=== PATIENT | male | born 1960 | race Caucasian/White ===

== ENCOUNTER → 2017-12-27 17:13 | Outpatient (CLI) | payer OTHER, SELFPAY ==
--- NOTE | 2017-12-27 14:00 | LES_PTH ---
PATIENT: JAKE RAMOS LOC: [facility] U#:[id number] AGE/SX: 64/M ROOM: RE12/27/[address]: Dr. Steven Ibarra MD : [id number] BED: DIS: SPEC #: [id number] RECD: 12/30/17 07:41 STATUS: GORDON RE #: [id number] PRISCILLA: 12/27/17 14:[address]: Emil Ibarra DEPT: SURGICAL PATHOLOGY RECD BY: Jayjay Sharma ENTERED: 12/30/17 07:41 SP TYPE: Lesion OTHR DR: Dr. Steven Ibarra MD Out of [facility] Doctor Tissues: Soft palate Procedures: Surgery Specimen Level IV Comments: @ Ordering doctor for SUIV edited from to @ by RGOOD at 12/30/17 0849 @ Submitting doctor edited from to @ by RGOOD at 12/30/17 0849 HEADER OPERATION: Not noted PRE-OP DIAGNOSIS: Soft palate neoplasm TISSUE SUBMITTED: Soft palate neoplasm, permanent pathology MICROSCOPIC DIAGNOSIS Soft palate neoplasm, biopsy: Squamous papilloma. CATALINO:ashia 12/31/17 MICROSCOPIC DESCRIPTION Slides are reviewed. GROSS DESCRIPTION Received in fixative is one container labeled with the patient's name and designated soft palate neoplasm. The specimen consists of a piece of soft tissue measuring 0.2 x 0.2 x 0.1 cm. The specimen is totally submitted in one cassette. / CATALINO:ashia 12/30/17 TC:1 CPT: 09811
== END ==
PROVIDERS: Visit Provider Otolaryngology Otolaryngology/Facial Plastic Surgery
DX: D49.0 Neoplasm of unspecified behavior of digestive system (principal)
CPT/HCPCS: 88305

== ENCOUNTER 2020-06-18 15:19 | Inpatient (IN) | payer OTHER, SELFPAY ==
[2020-06-18] VITALS (7 sets, daily range): BP systolic 105–147; BP diastolic 71–93; PULSE 77–86; RESP 18–26; TEMP 37.1–37.3; O2SAT 92–97; BMI 31.1
--- NOTE | 2020-06-18 15:46 | PCM.HP.STD ---
Problem List (1) Hypertension Status: Chronic (2) Hyperlipidemia Status: Chronic (3) Chest pain Status: Acute History of Present Illness Date of Admission: 06/18/20 Chief Complaint: Chest pain. The patient is a 59 year old M who presents emergency room due to chest pain. Patient reports this has been ongoing for 2 days. He describes a pressure/heaviness with pain radiation to his left shoulder and down his left arm. He states he had difficulty sleeping last night due to significant pain. He denies any aggravating or alleviating factors. He thought his symptoms were due to indigestion and tried [id number] medication without any relief. His daughter is a nurse and told him to go to the ER for evaluation. Patient denies history of similar symptoms. He states pain occurred both while he was active and at rest. Patient describes associated shortness of breath with episodes of chest pressure. He denies nausea, diaphoresis. He has a past medical history of hypertension and hyperlipidemia. He states his father had triple bypass in his 50s and his paternal grandfather suddenly of massive heart attack in his 50s as well. He denies history of stress test or heart cath. Denies known CAD. Past Medical History Past Medical History (Chronic Problems): Chronic Problems Hypertension (Chronic) Hyperlipidemia (Chronic) Surgical History: - - Right ear surgery Psychiatric History: No pertinent psych hx Lives: Spouse/ Significant Other Smoking Status: Former smoker Alcohol: Occasional Drugs: None - *Family History Maternal History Items: - - Valvular heart disease Paternal History Items: Heart Disease Review of Systems Constitutional: Denies: Chills, Fever, Weight Change HEENT: Denies: Head Aches, Sinus Congestion, Sinus Drainage Cardiovascular: Reports: Chest Pain. Denies: Edema, Light Headedness, Palpitations Respiratory: Reports: Shortness of Breath - Associated with chest pain. Denies: Cough Gastrointestinal: Denies: Abdominal Pain, Nausea, Vomiting Genitourinary: Denies: Dysuria Musculoskeletal: Denies: Joint Pain, Joint Tenderness Skin: Denies: Rash, Wounds Neurological: Denies: Numbness, Tingling, Focal weakness Psychiatric: Denies: Anxiety, Depression, Homicidal Ideations, Suicidal Ideations Hematologic/ Lymphatic: Denies: Easy Bruising, Easy Bleeding VTE Information - Inpt Only VTE Present on Admission: No VTE Mechan Device Prophylaxis: None VTE Pharm Prophylaxis ordered?: Yes - Physical Exam Vitals/I&O's: Vital Signs Temp Pulse Resp BP Pulse Ox 99.1 F 80 26 H 147/93 H 94 06/18/20 15:38 06/18/20 15:38 06/18/20 15:38 06/18/20 15:38 06/18/20 15:38 Oxygen Delivery Method Room Air Weight: 204 lb 11.2 oz Body Mass Index (BMI) 31.1 General: Alert, Oriented x3, Cooperative HEENT: Atraumatic, PERRLA, EOMI, Normocephalic Neck: Supple, No JVD, Negative Carotid Bruits Lungs: Clear to auscultation, Normal air movement Cardiovascular: Regular rate, No murmurs Abdomen: Bowel Sounds Present, Soft, Non Tender, Non-Distended Extremities: No clubbing, No cyanosis, No edema, Capillary Refill Less than 3 Seconds Skin: No rashes, No breakdown Musculoskeletal: No Tenderness to Palpation of Joints or Extremities Neurological: Cranial nerves II-XII grossly intact, Neuro grossly intact Psych/Mental Status: Normal Affect, Appropriate Current Medications Sodium Chloride (0.9% Saline Lock 10 Ml Syringe) 10 - 40 ml IV UD PRN PRN Reason: SALINE FLUSH Assessment/Plan All Active Problems Chest pain (Acute) 1. Chest pain, NSTEMI- last high-sensitivity troponin at [facility] 162.6 with normal reference range 0-76.2. Covid negative at outside facility. Cardiology consulted. Trend enzymes. Aspirin, statin. As needed nitro. Obtain echo. 2. Hypertension-continue home amlodipine, lisinopril. 3. Hyperlipidemia-continue home statin regimen. 4. GERD-continue PPI. DVT prophylaxis- Lovenox sc This patient was seen by BOBBI Gregory under the supervision of Dr. Ramirez.
--- NOTE | 2020-06-18 16:44 | ECHOD_ITS ---
Reason For Study: CHEST PAIN Procedure This was a 2D Doppler, Color Flow transthoracic echocardiogram. The study was technically difficult. Exam performed portable in patient room. Left Ventricle Normal LV size. Left ventricular systolic function is normal. The estimated ejection fraction is 55 %. No evidence for diastolic dysfunction. No regional wall motion abnormalities noted. Right Ventricle Normal RV size. Normal systolic function. Atria The left atrium is mildly enlarged. Normal right atrium. No doppler evidence for ASD. Mitral Valve There is mild mitral annular calcification. Extension of the mitral annular calcification on the base the posterior mitral valve leaflet. Trivial mitral valve insufficiency. Tricuspid Valve Normal tricuspid valve. Trivial tricuspid valve insufficiency. Right ventricular systolic pressure estimated to be 24 mmHg. Aortic Valve Trisinus/trileaflet aortic valve. Normal aortic valve. Pulmonic Valve The pulmonic valve is not well visualized. Trivial pulmonic valve insufficiency. Great Vessels Normal sized aortic root. Pericardium/Pleural No pericardial effusion. MMode/2D Measurements & Calculations LVIDd: 5.2 cm IVSd: 1.0 cm Ao root diam: 3.3 cm LVIDs: 3.5 cm LVPWd: 0.86 cm RVDd: 3.2 cm FS: 31.8 % LAV(MOD-bp): 53.8 ml LVAd ap4: 36.5 cm2 SV(MOD-sp4): 73.7 ml LAV(MOD-bp) Indexed: 26.1 ml/m2 EDV(MOD-sp4): 130.4 ml LAV(MOD-sp2): 59.1 ml EDV(sp4-el): 128.1 ml LAV(MOD-sp4): 48.6 ml LVAs ap4: 21.9 cm2 ESV(MOD-sp4): 56.7 ml ESV(sp4-el): 54.8 ml EF(MOD-sp4): 56.5 % EF(sp4-el): 57.2 % SV(sp4-el): 73.3 ml LA A4 area: 18.3 cm2 LA dimension(2D): 4.3 cm RA A4 area: 13.9 cm2 Time Measurements MV dec time: 0.22 sec Doppler Measurements & Calculations MV E max alcides: 73.8 cm/sec Lat Peak E' Alcides: 11.1 cm/sec Med Peak E' Alcides: 7.9 cm/sec MV A max alcides: 64.2 cm/sec E/E' lat: 6.7 E/E' med: 9.4 MV E/A: 1.2 Ao V2 max: 144.6 cm/sec LV V1 max: 96.8 cm/sec PA V2 max: 94.5 cm/sec Ao max P.4 mmHg LV V1 max P.7 mmHg PI end-d alcides: 47.3 cm/sec TR max alcides: 229.3 cm/sec TR max P.0 mmHg Interpretation Summary The study was technically difficult. Left ventricular systolic function is normal. The estimated ejection fraction is 55 %. The left atrium is mildly enlarged. There is mild mitral annular calcification. Extension of the mitral annular calcification on the base the posterior mitral valve leaflet. Trivial mitral valve insufficiency. Trivial tricuspid valve insufficiency. Trivial pulmonic valve insufficiency. Right ventricular systolic pressure estimated to be 24 mmHg. No evidence for diastolic dysfunction. Ordering Physician: Edi Mendoza Performed By: Fabienne Graham, KUMAR
--- NOTE | 2020-06-18 16:46 | PCM.CONS.C ---
Problem List (1) Chest pain Status: Acute (2) Abnormal cardiac enzyme level Status: Acute (3) Hyperlipidemia Status: Chronic (4) Hypertension Status: Chronic Reason for Consult Date of Consultation: 06/18/20 History of Present Illness: The patient is a 59 year [id number] white male with a past medical history of hyperlipidemia, hypertension, and hemorrhoids who presents for further evaluation of chest discomfort Durning for unstable angina pectoris and abnormal cardiac enzymes concerning for a non-ST segment elevation AK. The patient states to the best of his knowledge he does not have any cardiovascular history other than his hyperlipidemia and hypertension. He notes recently he has been having symptoms which he describes as indigestion, belching, and chest burning as well as discomfort in the left shoulder area. He is also felt somewhat more short of breath and dyspneic at times. He describes no orthopnea or PND or peripheral pitting edema. There has been no near syncope or syncope. He presented to his local emergency department for further evaluation. He was placed in the hospital for overnight evaluation and care. He had an initial troponin I level which was negative. He had a subsequent high-sensitivity troponin I level which was positive at 162.6. His ECGs demonstrated the appearance of sinus rhythm with poor R wave progression with no significant changes. A chest x-ray was reported with no acute cardiopulmonary disease process. He was placed on medical management and subsequently transferred to [facility] for further evaluation and care. At the present time he appears to be resting comfortably. He is not having his forementioned symptoms. He is pending further laboratory follow-up and ECG follow-up. Of note, he states his concerns also revolve around his risk factors. He notes his father in his 50s had CAD and CABG and a grandfather in his late 50s and of cardiovascular disease. At the outside hospital he was also evaluated for COVID-19 with both the antigen test and PCR test. Both were reported as negative at the time. [] Past Medical History Past Medical History (Chronic Problems): Chronic Problems Hypertension (Chronic) Hyperlipidemia (Chronic) Surgical History: - - Right ear surgery Psychiatric History: No pertinent psych hx - *Family History Maternal History Items: - - Valvular heart disease Paternal History Items: Heart Disease Lives: Spouse/ Significant Other Smoking Status: Former smoker Alcohol: Occasional Drugs: None Review of Systems - Review of Systems General: Denies: Fever, Night Sweats, Fatigue Cardiovascular: Reports: Chest Discomfort, Chest Discomfort at Rest, Chest Discomfort with Exertion, Shortness of Breath. Denies: Orthopnea, PND, Peripheral Edema, Palpitations, Lightheadedness, Dizziness, Near Syncope, Syncope Respiratory: Reports: Shortness of Breath. Denies: Cough, Sputum Production, Hemoptysis Gastrointestinal: Reports: Indigestion. Denies: Hematemesis, Hematochezia, Melena Genitourinary: Denies: Dysuria, Hematuria Skin: Denies: Rash Subjectve: This is a 59-year-old white male who appears resting comfortably at the moment in no acute distress. Objective: Vital Signs Temp Pulse Resp BP Pulse Ox 99.1 F 80 26 H 147/93 H 94 06/18/20 15:38 06/18/20 15:38 06/18/20 15:38 06/18/20 15:38 06/18/20 15:38 Oxygen Delivery Method Room Air Weight: 204 lb 11.2 oz Body Mass Index (BMI) 31.1 General: Awake, Alert, Oriented x 3, Cooperative, No Acute Distress HEENT: Atraumatic, Normocephalic, PERRL, EOMI, Sclera Non Icteric Neck: Supple, Good ROM, No JVD Lungs: Clear to auscultation Cardiovascular: Regular Rhythm, Normal S1, Normal S2 Vascular: No Carotid Bruits Abdomen: Bowel Sounds Present, Soft, Non Tender Extremities: No edema Neurological: No Focal Motor or Sensory Deficit Psych/Mental Status: Appropriate Rhythm: Sinus rhythm EKG: As noted above CXR: As noted above Assessment/Plan 1. Chest pain: Unstable angina pectoris The patient presents with chest discomfort concerning for accelerating/unstable angina pectoris. At the present time he appears to be resting comfortably. His outside hospital cardiac enzyme levels were thought to be abnormal raising concerns of an acute coronary syndrome/non-ST segment elevation AK. He is being followed. He will have follow-up laboratory studies and ECGs. He is being treated medically. This will include a combination of aspirin, antiplatelets, anticoagulants, nitrates, beta-blockers, afterload reducing agents, and lipid-lowering agents. He will be asked to have further noninvasive valuation with a transthoracic echocardiogram to evaluate left ventricular wall motion and systolic function. He will be considered for further evaluation with diagnostic cardiac catheterization to evaluate his coronary anatomy. 2. Abnormal cardiac enzymes Again he has abnormal cardiac enzymes based upon his outside hospital high-sensitivity troponin I level. This does raise concerns of a non-ST segment elevation AK. His cardiac enzyme levels will be followed as noted as well as his other noninvasive studies. He will be treated for an acute coronary syndrome as noted. He has been recommended for further evaluation with diagnostic cardiac catheterization. The procedure and risks have been discussed with him and he is agreeable to this approach. 3. Hyperlipidemia He will continue medical management. 4. Hypertension He will continue medical therapy with adjustment as needed. Comment: The patient's case has been discussed and reviewed with the patient and Ny Peguero CNP, the [facility] staff and Dr. Ramirez of the [facility] staff. This note was generated using a voice recognition system and there may be incorrect words, spelling or punctuation that were not noted when reviewing the office note prior to saving. Procedure Criteria Procedure Type: Elective COVID Risk Discussion: The surgeon/proceduralist and patient have discussed in detail the risk of exposure to and/or potential harm posed by the COVID-19 virus with having a surgery/procedure at this time versus the risk of delaying the surgery/procedure. It is not possible to know either the risk of delaying the surgery or procedure or chance of getting an infection with perfect accuracy, but a joint decision was made between the patient and the surgeon/proceduralist to proceed at this time with the scheduled surgery/procedure as indicated on the consent form.
[2020-06-18] MEDS: Clopidogrel Bisulfate 300 MG Tablet PO (17:59)
[2020-06-18] MEDS: Enoxaparin 100 MG/ML Syringe 90 MG SC (17:59)
[2020-06-18] MEDS: Nitroglycerin Oint 1 INCH PACKET TD ×2 (18:01→23:59)
[2020-06-18] MEDS: Metoprolol Tartrate 25 MG Tablet PO (20:57)
[2020-06-18] MEDS: Atorvastatin Calcium 80 MG Tablet PO (20:58)
[2020-06-19] VITALS (10 sets, daily range): BP systolic 95–135; BP diastolic 59–72; PULSE 63–81; RESP 15–18; TEMP 36.9–37.3; O2SAT 91–93
--- NOTE | 2020-06-19 05:55 | EKG12_ITS ---
Test Reason : AM EKG Blood Pressure : / mmHG Vent. Rate : 065 BPM Atrial Rate : 065 BPM P-R Int : 146 ms QRS Dur : 094 ms QT Int : 402 ms P-R-T Axes : 006 -19 001 degrees QTc Int : 418 ms Sinus rhythm with Premature atrial complexes Otherwise normal ECG Confirmed by GEE WANG, CRISTIAN ([id number]), scientific editor REINIER URBANO ([id number]) on 06/22/2020 1:20:25 PM Referred By: KIRSTEN Confirmed By:CRISTIAN FLYNN MD
[2020-06-19] MEDS: Nitroglycerin Oint 1 INCH PACKET TD ×3 (06:04→17:06)
[2020-06-19] MEDS: Enoxaparin 100 MG/ML Syringe 90 MG SC ×2 (06:05→17:06)
[2020-06-19 06:07] LABS: Absolute Lymphocyte Count 1.55 X10^3/uL (0.83-4.51); Absolute Neutrophil Count 7.7 X10^3/uL (2.0-7.7); Basophil# 0.03 X10^3/uL; Basophil% 0.3 % (0-1); Eosinophil# 0.08 X10^3/uL; Eosinophils% 0.8 % (0-5); Hematocrit 41.1 % (40-54); Hemoglobin 13.7 g/dL (13.0-16.5); Lymphocyte # 1.55 X10^3/ul (4.0); Lymphocyte % 14.7 % (19-41); Mean Corp Hgb Conc 33.3 g/dL (32-36); Mean Corpuscular Hgb 31.1 pg (27.0-32.0); Mean Corpuscular Volume 93.2 fL (80-94); Mean Platelet Vol. 10.1 fl (6.2-12.0); Monocyte# 1.11 X10^3/uL; Monocyte% 10.5 % (0-10); NRBC Flagged by Analyzer 0 % (0-5); Neutrophil # 7.73 X10^3/uL (2.7-7.7); Neutrophil % 73.1 % (47-70); Platelet Count 166 K/mm3 (150-450); RBC Distribution Width CV 12.8 % (11.6-14.6); RBC Distribution Width SD 44.4 fl (35.1-43.9); Red Blood Count 4.41 M/mm3 (4.6-6.2); White Blood Count 10.6 K/mm3 (4.4-11.0)
[2020-06-19 06:42] LABS: Anion Gap 6 (5-15); BUN 19 mg/dL (7-18); BUN/Creat Ratio 22.1 RATIO (10-20); Chloride 104 mmol/L (98-107); Creatinine, Serum 0.86 mg/dL (0.70-1.30); EST Glomerular Filtration Rate 96 mL/min (>60); Est Glom Filt Rate - Afr Amer 117 mL/min (>60); Estimated Creatinine Clearance 88.37 ml/min; Glucose 111 mg/dL (74-106); Potassium 4.2 mmol/L (3.5-5.1); Sodium Level 136 mmol/L (136-145)
[2020-06-19] MEDS: amLODIPine 10 MG Tablet PO (09:27)
[2020-06-19] MEDS: Aspirin 81 MG TAB.CHEW PO (09:27)
[2020-06-19] MEDS: Metoprolol Tartrate 25 MG Tablet PO ×2 (09:27→20:57)
--- NOTE | 2020-06-19 10:06 | PCM.PN.CARD ---
Subjectve: The patient states he slept better last night. He has had no recurrent chest discomfort this morning. Objective: Vital Signs Temp Pulse Resp BP Pulse Ox 98.4 F 68 15 105/71 92 06/19/20 09:09 06/19/20 09:27 06/19/20 09:09 06/19/20 09:09 06/19/20 09:09 Oxygen Delivery Method Room Air Weight: 205 lb 14.588 oz Body Mass Index (BMI) 31.1 Intake and Output for Last 24 Hours 06/17/20 06/18/20 06/19/20 23:59 23:59 23:59 Intake Total 240 / 720 480 / 480 Balance 240 / 720 480 / 480 General: Awake, Alert, Oriented x 3, Cooperative, No Acute Distress HEENT: Atraumatic, Normocephalic, PERRL, EOMI, Sclera Non Icteric Neck: Supple, Good ROM, No JVD Lungs: Clear to auscultation Cardiovascular: Regular Rhythm, Normal S1, Normal S2 Abdomen: Bowel Sounds Present, Soft Extremities: No edema Neurological: No Focal Motor or Sensory Deficit Psych/Mental Status: Appropriate 06/18/20 19:30: Troponin I 0.116 H 06/18/20 23:00: Troponin I 0.077 H 06/19/20 01:32: Troponin I 0.083 H 06/19/20 05:50: WBC 10.6, RBC 4.41 L, Hgb 13.7, Hct 41.1, MCV 93.2, MCH 31.1, MCHC 33.3, Plt Count 166, MPV 10.1, Immature Gran % (Auto) 0.600, Neut % (Auto) 73.1 H, Lymph % (Auto) 14.7 L, [place] % (Auto) 10.5 H, Eos % (Auto) 0.8, Baso % (Auto) 0.3, Absolute Neuts (auto) 7.7, Nucleated RBC % 0 06/19/20 05:50: Sodium 136, Potassium 4.2, Chloride 104, Carbon Dioxide 26.0, Anion Gap 6, BUN 19 H, Creatinine 0.86, Est GFR (MDRD) Af Amer 117, Est GFR (MDRD) Non-Af 96, BUN/Creatinine Ratio 22.1 H, Glucose 111 H, Calcium 9.0 Rhythm: Sinus rhythm EKG: Sinus rhythm; no acute ECG changes Medical Necessity - Tobacco Use Smoking Status: Former smoker Tobacco Use: Cigarettes Assessment/Plan 1. Chest pain: Unstable angina pectoris The patient presents with chest discomfort concerning for accelerating/unstable angina pectoris. At the present time he appears to be resting comfortably. His outside hospital cardiac enzyme levels were thought to be abnormal raising concerns of an acute coronary syndrome/non-ST segment elevation SC. He is being followed. Troponin I levels have remained indeterminate. ECG is demonstrated no acute ECG changes. He is being treated medically. This will include a combination of aspirin, antiplatelets, anticoagulants, nitrates, beta-blockers, afterload reducing agents, and lipid-lowering agents. He will be asked to have further noninvasive valuation with a transthoracic echocardiogram to evaluate left ventricular wall motion and systolic function. He will be considered for further evaluation with diagnostic cardiac catheterization to evaluate his coronary anatomy. 2. Abnormal cardiac enzymes: Non-ST segment elevation SC Again he has abnormal cardiac enzymes based upon his outside hospital high-sensitivity troponin I level. This does raise concerns of a non-ST segment elevation SC. His cardiac enzyme levels will be followed as noted as well as his other noninvasive studies. He will be treated for an acute coronary syndrome as noted. He has been recommended for further evaluation with diagnostic cardiac catheterization. The procedure and risks have been discussed with him and he is agreeable to this approach. 3. Hyperlipidemia He will continue medical management. 4. Hypertension He will continue medical therapy with adjustment as needed. This note was generated using a voice recognition system and there may be incorrect words, spelling or punctuation that were not noted when reviewing the office note prior to saving. Procedure Criteria Procedure Type: Elective COVID Risk Discussion: The surgeon/proceduralist and patient have discussed in detail the risk of exposure to and/or potential harm posed by the COVID-19 virus with having a surgery/procedure at this time versus the risk of delaying the surgery/procedure. It is not possible to know either the risk of delaying the surgery or procedure or chance of getting an infection with perfect accuracy, but a joint decision was made between the patient and the surgeon/proceduralist to proceed at this time with the scheduled surgery/procedure as indicated on the consent form.
--- NOTE | 2020-06-19 10:42 | PN_ITS ---
Patient Problems: Active and Suspected Problems Chest pain (Acute) Abnormal cardiac enzyme level (Acute) Subjective: Patient seen and examined. Denies further chest pain overnight. Complains of mild headache. Reports episode of black stool this morning. Denies other symptoms or complaints. Plan for heart cath in a.m. - Physical Exam Vitals/I&O's: Vital Signs Temp Pulse Resp BP Pulse Ox 98.4 F 68 15 105/71 92 06/19/20 09:09 06/19/20 09:27 06/19/20 09:09 06/19/20 09:09 06/19/20 09:09 Oxygen Delivery Method Room Air Weight: 205 lb 14.588 oz Body Mass Index (BMI) 31.1 Intake and Output for Last 24 Hours 06/17/20 06/18/20 06/19/20 23:59 23:59 23:59 Intake Total 240 / 720 480 / 480 Balance 240 / 720 480 / 480 General: Alert, Oriented x3, Cooperative HEENT: Atraumatic, PERRLA, EOMI, Normocephalic Neck: Supple, No JVD, Negative Carotid Bruits Lungs: Clear to auscultation, Normal air movement Cardiovascular: Regular rate, No murmurs Abdomen: Bowel Sounds Present, Soft, Non Tender, Non-Distended Extremities: No clubbing, No cyanosis, No edema, Capillary Refill Less than 3 Seconds Skin: No rashes, No breakdown Musculoskeletal: No Tenderness to Palpation of Joints or Extremities Neurological: Cranial nerves II-XII grossly intact Psych/Mental Status: Normal Affect, Appropriate Laboratory Results 06/18/20 19:30: Troponin I 0.116 H 06/18/20 23:00: Troponin I 0.077 H 06/19/20 01:32: Troponin I 0.083 H 06/19/20 05:50: WBC 10.6, RBC 4.41 L, Hgb 13.7, Hct 41.1, MCV 93.2, MCH 31.1, MCHC 33.3, RDW Std Deviation 44.4 H, RDW Coeff of Andres 12.8, Plt Count 166, MPV 10.1, Immature Gran % (Auto) 0.600, Neut % (Auto) 73.1 H, Lymph % (Auto) 14.7 L, [place] % (Auto) 10.5 H, Eos % (Auto) 0.8, Baso % (Auto) 0.3, Absolute Neuts (auto) 7.7, Absolute Lymphs (auto) 1.55, Nucleated RBC % 0 06/19/20 05:50: Sodium 136, Potassium 4.2, Chloride 104, Carbon Dioxide 26.0, Anion Gap 6, BUN 19 H, Creatinine 0.86, Estim Creat Clear Calc 88.37, Est GFR (MDRD) Af Amer 117, Est GFR (MDRD) Non-Af 96, BUN/Creatinine Ratio 22.1 H, Glucose 111 H, Calcium 9.0 Current Medications Acetaminophen (Acetaminophen 325 Mg Tablet) 650 mg PO Q6H PRN PRN PRN Reason: Pain Score 1-10/Temp > 100.7 F Amlodipine Besylate (Amlodipine 10 Mg Tablet) 10 mg PO DAILY [facility] Last Admin: 06/19/20 09:27 Dose: 10 mg Documented by: Aspirin (Aspirin 81 Mg Tab.Chew) 81 mg PO DAILY@0800 [facility] Last Admin: 06/19/20 09:27 Dose: 81 mg Documented by: Atorvastatin Calcium (Atorvastatin Calcium 80 Mg Tablet) 80 mg PO QHS [facility] Last Admin: 06/18/20 20:58 Dose: 80 mg Documented by: Clopidogrel Bisulfate (Clopidogrel Bisulfate 75 Mg Tablet) 75 mg PO DAILY [facility] Enoxaparin Sodium (Enoxaparin 100 Mg/Ml Syringe) 90 mg SC Q12@0600,1800 [facility] Last Admin: 06/19/20 06:05 Dose: 90 mg Documented by: Sodium Chloride () 1,000 mls @ 0 mls/hr IV .Q0M [facility] Lisinopril (Lisinopril 40 Mg Tablet) 40 mg PO DAILY [facility] Metoprolol Tartrate (Metoprolol Tartrate 25 Mg Tablet) 25 mg PO BID [facility] Last Admin: 06/19/20 09:27 Dose: 25 mg Documented by: Nitroglycerin (Nitroglycerin Oint 1 Inch Packet) 1 inch TD Q6 [facility] Last Admin: 06/19/20 06:04 Dose: 1 inch Documented by: Ondansetron HCl (Ondansetron 4 Mg/2 Ml Vial) 4 mg IV Q8H PRN PRN PRN Reason: NAUSEA/VOMITING Sodium Chloride (0.9% Saline Lock 10 Ml Syringe) 10 - 40 ml IV UD PRN PRN Reason: SALINE FLUSH Temazepam (Temazepam 15 Mg Capsule) 15 mg PO QHS PRN PRN PRN Reason: INSOMNIA Medical Necessity - Tobacco Use Smoking Status: Former smoker Tobacco Use: Cigarettes Assessment/Plan All Active Problems Chest pain (Acute) Abnormal cardiac enzyme level (Acute) 1. Chest pain, abnormal troponin- Cardiology consulted. Aspirin, statin, Plavix, metoprolol, nitro patch. Echocardiogram ordered. Plan for heart cath in a.m. 2. Hypertension-continue home amlodipine, lisinopril. Beta-breanna added. 3. Hyperlipidemia-continue home statin regimen. 4. GERD-continue PPI. DVT prophylaxis- Lovenox sc This patient was seen by BOBBI Gregory under the supervision of Dr. Ramirez.
[2020-06-19] MEDS: Lisinopril 40 MG Tablet PO (12:30)
[2020-06-19] MEDS: Clopidogrel Bisulfate 75 MG Tablet PO (12:30)
[2020-06-19] MEDS: Atorvastatin Calcium 80 MG Tablet PO (20:57)
[2020-06-20] VITALS (16 sets, daily range): BP systolic 107–128; BP diastolic 60–85; PULSE 57–70; RESP 14–18; TEMP 36.6–36.9; O2SAT 92–96
[2020-06-20] MEDS: Nitroglycerin Oint 1 INCH PACKET TD ×2 (00:05→06:19)
--- NOTE | 2020-06-20 05:55 | EKG12_ITS ---
Test Reason : AM EKG Blood Pressure : / mmHG Vent. Rate : 064 BPM Atrial Rate : 064 BPM P-R Int : 142 ms QRS Dur : 094 ms QT Int : 408 ms P-R-T Axes : -01 -22 -02 degrees QTc Int : 420 ms Sinus rhythm with marked sinus arrhythmia Confirmed by GEE WANG, CRISTIAN ([id number]), editor magazine REINIER URBANO ([id number]) on 06/22/2020 1:39:02 PM Referred By: KIRSTEN Confirmed By:CRISTIAN FLYNN MD
[2020-06-20] MEDS: Metoprolol Tartrate 25 MG Tablet PO (06:19)
[2020-06-20] MEDS: amLODIPine 10 MG Tablet PO (06:19)
[2020-06-20] MEDS: Clopidogrel Bisulfate 75 MG Tablet PO (06:19)
[2020-06-20] MEDS: Aspirin 81 MG TAB.CHEW PO (06:19)
[2020-06-20] MEDS: Lisinopril 40 MG Tablet PO (06:19)
[2020-06-20 06:22] LABS: Hematocrit 39.7 % (40-54); Hemoglobin 13.5 g/dL (13.0-16.5); Mean Corpuscular Hgb 31.6 pg (27.0-32.0); Platelet Count 181 K/mm3 (150-450); RBC Distribution Width CV 12.8 % (11.6-14.6); RBC Distribution Width SD 43.8 fl (35.1-43.9); Red Blood Count 4.27 M/mm3 (4.6-6.2)
[2020-06-20 06:49] LABS: Anion Gap 5 (5-15); BUN 17 mg/dL (7-18); BUN/Creat Ratio 19.6 RATIO (10-20); Calcium,Total 8.6 mg/dL (8.5-10.1); Chloride 106 mmol/L (98-107); Creatinine, Serum 0.87 mg/dL (0.70-1.30); EST Glomerular Filtration Rate 95 mL/min (>60); Est Glom Filt Rate - Afr Amer 116 mL/min (>60); Estimated Creatinine Clearance 87.36 ml/min; Glucose 111 mg/dL (74-106); Potassium 4.1 mmol/L (3.5-5.1); Sodium Level 137 mmol/L (136-145)
[2020-06-20 06:52] LABS: International Normalized Ratio 1.1; Prothrombin Time (Protime)PT. 13.9 SECONDS (11.7-14.9)
[2020-06-20] MEDS: 0.9% Normal Saline 1,000 ML 75 ML IV (08:25)
--- NOTE | 2020-06-20 08:50 | CL.D_ITS ---
Patient Name: JAKE RAMOS Study Date: 06/20/2020 Performing: Edi Mendoza MD Ht: 68 inches 173 cm : 1960 Wt: 205.3 lbs 93 kg Age: 59 Gender: male BSA: 2.07 PROCEDURE(S) PERFORMED ST21-ULD/COR/LV CLINICAL PROFILE AND INDICATIONS Indications: ACS > 24 hrs, New Onset Angina <= 2 months, Suspected CAD Heart Failure: None Stress/Imaging Stress/Image Study Performed: No Angina Classification Anginal Classification w/in 2 Weeks: CCS IV CAD Presentations: Non-STEMI. CONCLUSIONS Elevated Left Ventricular End Diastolic Pressure Normal LV size, wall motion,and systolic function LVEF: by LV gram 55 % [place] Multivessel CAD RECOMMENDATIONS Risk factor modification Medical therapy DESCRIPTION OF PROCEDURE The patient arrived to the procedure lab. The risks and benefits of the procedure as well as a full d escription of our services here and current unavailability of surgical backup were fully explained to the patient and/or their significant other prior to the catheterization. The Timeout was completed, verifying the correct patient and procedure. The patient's procedural site was prepped and draped in the usual fashion. Local anesthetic was given subcutaneously to right radial region with Lidocaine 2% . Using a modified Seldinger technique, arterial access was obtained via the right radial artery, a 6 Fr sheath was inserted. Right Coronary Artery selective angiography was then performed in multiple v iews using a 5 Fr. 4.0 [place] catheter. Left Coronary Artery selective angiography was performed in mu ltiple views using a 5 Fr. JL3.5 catheter. Left Ventriculography was performed in [place] projection usin g a 5 Fr. Pigtail catheter. LV to AO pullback pressures were then recorded.The arterial sheath was pulled and a TR Band was applied for hemostasis 12cc air inserted CORONARY ANGIOGRAPHY DOMINANCE: Right Dominant LEFT HEART ASSESSMENT Left Ventricular Ejection Fraction: by LV Gram 55 % Normal LV wall motion Elevated Left Ventricular End Diastolic Pressure LVEDP: 26 mmHg LEFT MAIN: Proximal: Eccentric: 25 % Stenosis, Distal: 10 - 25 % Stenosis LEFT ANTERIOR DESCENDING ARTERY: Mild luminal irregularities DIAGONAL 1: Ostial - 25 % Stenosis DIAGONAL 2: Ostial - 25 % Stenosis CIRCUMFLEX ARTERY: Mild luminal irregularities RIGHT CORONARY ARTERY: Mild luminal irregularities Mid to Distal: Diffuse Ectatic Changes AORTIC ROOT: Angiographically normal COMPLICATIONS No Complications PROCEDURE MEDICATIONS Fentanyl 50 mcg IV Versed 1 mg IV Oxygen: 2 L/min via nasal cannula SUMMARY OF HEMODYNAMIC DATA Time AIR REST ECG 07:29:41 Art 122/76 (93) 07:46:42 AO 110/82 (97) SA 07:53:29 LV 121/2, 25 08:10:20 LV 124/0, 26 08:10:27 LV 118/10, 25 08:11:13 LVp 115/7, 24 08:11:18 AOp 122/78 (97) 08:11:23 Signed By Edi Mendoza MD On 06/20/2020 08:49:57 Edi Mendoza MD
[2020-06-20] MEDS: Acetaminophen 325 MG Tablet 650 MG PO (11:00)
[2020-06-20] MEDS: Isosorbide Mononitrate 30 MG Tablet PO (11:01)
--- NOTE | 2020-06-20 11:37 | PCM.DC ---
- Discharge Diagnoses Current Active Problems: Current Active and Chronic Problems (Last Updated 06/20/20 @ 09:05 by Valencia Nieves) Hypertension (Chronic) Hyperlipidemia (Chronic) Chest pain (Acute) Abnormal cardiac enzyme level (Acute) You will use the following diet at home:: Cardiac Discharge Activity: - - Follow post cath instructions Call your doctor if you observe: Shortness of breath, Chest pain Allergies/Adverse Reactions: Allergies No Known Allergies Allergy (Verified 06/18/20 16:49) Medications to take at Discharge Lisinopril [Zestril] 40 mg PO DAILY 06/18/20 Amlodipine [Norvasc] 10 mg PO DAILY tab 06/20/20 Aspirin [Aspirin, Baby] 81 mg PO DAILY@0800 #60 tab.chew 06/20/20 Atorvastatin Calcium [Lipitor] 80 mg PO QHS #60 tab 06/20/20 Clopidogrel Bisulfate [Plavix] 75 mg PO DAILY #60 tab 06/20/20 Isosorbide Mononitrate [Imdur] 30 mg PO DAILY #60 tab 06/20/20 Lisinopril [Zestril] 40 mg PO DAILY tab 06/20/20 Metoprolol Tartrate [Lopressor (beta breanna)] 25 mg PO BID #120 tab 06/20/20 Pantoprazole Sodium [Protonix] 40 mg PO DAILY #60 tab 06/20/20 The following prescriptions were given: Aspirin [Aspirin, Baby] 81 mg PO DAILY@0800 #60 tab.chew Transmission Status: Received by [facility]/pharmacy #[id number] Isosorbide Mononitrate [Imdur] 30 mg PO DAILY #60 tab Transmission Status: Received by [facility]/pharmacy #[id number] Atorvastatin Calcium [Lipitor] 80 mg PO QHS #60 tab Transmission Status: Received by [facility]/pharmacy #[id number] Metoprolol Tartrate [Lopressor (beta breanna)] 25 mg PO BID #120 tab Transmission Status: Received by [facility]/pharmacy #[id number] Clopidogrel Bisulfate [Plavix] 75 mg PO DAILY #60 tab Transmission Status: Received by [facility]/pharmacy #[id number] Pantoprazole Sodium [Protonix] 40 mg PO DAILY #60 tab Transmission Status: Received by [facility]/pharmacy #[id number] Primary Care Physician: Care Physician,No Primary [Primary Care Provider] - Please follow up with your Primary Care Physician in: 1 Week Test Results: Test results from this visit will be discussed in further detail at your follow-up appointment, if applicable. Please Follow Up With: Edi Mendoza MD When: 2 Weeks Proposed Discharge Date: 06/20/20
--- NOTE | 2020-06-20 12:28 | PHA.DC.MC ---
Pharmacy Service has performed discharge medication reconciliation and counseling for this patient. 1. ASPIRIN 81MG PO DAILYCM 2. ATORVASTATIN 80MG PO QHS 3. CLOPIDOGREL 75MG PO DAILY 4. ISOSORBIDE MONONITRATE 30MG PO DAILY 5. METOPROLOL TARTRATE 25MG PO BID 6. PANTOPRAZOLE 40MG PO DAILY The patient's discharge medication list was reviewed for discrepancies and discrepancies were resolved. Spoke with DIVE SUPERVISOR Erin regarding duplicate lisinopril 40mg order. TORB to correct. Home Medications Lisinopril [Zestril] 40 mg PO DAILY 06/18/20 Amlodipine [Norvasc] 10 mg PO DAILY tab 06/20/20 Aspirin [Aspirin, Baby] 81 mg PO DAILY@0800 #60 tab.chew 06/20/20 Atorvastatin Calcium [Lipitor] 80 mg PO QHS #60 tab 06/20/20 Clopidogrel Bisulfate [Plavix] 75 mg PO DAILY #60 tab 06/20/20 Isosorbide Mononitrate [Imdur] 30 mg PO DAILY #60 tab 06/20/20 Metoprolol Tartrate [Lopressor (beta breanna)] 25 mg PO BID #120 tab 06/20/20 Pantoprazole Sodium [Protonix] 40 mg PO DAILY #60 tab 06/20/20 The patient was counseled on the following discharge medications and changes in medications for homegoing were reviewed. The Reason for Use, instructions for use, and potential side effects were reviewed for all new medications. The patient's questions regarding all of their medications were answered. The patient was able to verbally demonstrate an understanding of their discharge medications.
--- NOTE | 2020-06-20 12:36 | PN.CARD_ITS ---
Subjectve: The patient underwent evaluation earlier this day with diagnostic cardiac catheterization. He appears to have had no acute complaints. Objective: Vital Signs Temp Pulse Resp BP Pulse Ox 98.3 F 61 14 118/80 92 06/20/20 10:00 06/20/20 12:02 06/20/20 11:44 06/20/20 11:44 06/20/20 11:44 Oxygen Delivery Method Room Air Weight: 205 lb 14.588 oz Body Mass Index (BMI) 31.1 Intake and Output for Last 24 Hours 06/18/20 06/19/20 06/20/20 23:59 23:59 23:59 Intake Total 240 / 720 1700 / 1700 420 / 420 Balance 240 / 720 1700 / 1700 420 / 420 General: Awake, Alert, Oriented x 3, Cooperative, No Acute Distress HEENT: Atraumatic, Normocephalic, PERRL, EOMI, Sclera Non Icteric Neck: Supple, Good ROM, No JVD Lungs: Clear to auscultation Cardiovascular: Regular Rhythm, Normal S1, Normal S2 Vascular: Normal Radial Pulses Abdomen: Bowel Sounds Present, Soft, Non Tender Extremities: No edema Neurological: No Focal Motor or Sensory Deficit Psych/Mental Status: Appropriate 06/20/20 06:07: WBC 10.0, RBC 4.27 L, Hgb 13.5, Hct 39.7 L, MCV 93.0, MCH 31.6, MCHC 34.0, Plt Count 181, MPV 10.0 06/20/20 06:07: PT 13.9, INR 1.1 06/20/20 06:07: Sodium 137, Potassium 4.1, Chloride 106, Carbon Dioxide 26.0, Anion Gap 5, BUN 17, Creatinine 0.87, Est GFR (MDRD) Af Amer 116, Est GFR (MDRD) Non-Af 95, BUN/Creatinine Ratio 19.6, Glucose 111 H, Calcium 8.6 Rhythm: Sinus rhythm Echocardiogram: Interpretation Summary The study was technically difficult. Left ventricular systolic function is normal. The estimated ejection fraction is 55 %. The left atrium is mildly enlarged. There is mild mitral annular calcification. Extension of the mitral annular calcification on the base the posterior mitral valve leaflet. Trivial mitral valve insufficiency. Trivial tricuspid valve insufficiency. Trivial pulmonic valve insufficiency. Right ventricular systolic pressure estimated to be 24 mmHg. No evidence for diastolic dysfunction. Cardiac catheterization: CONCLUSIONS Elevated Left Ventricular End Diastolic Pressure Normal LV size, wall motion,and systolic function LVEF: by LV gram 55 % [place] Multivessel CAD RECOMMENDATIONS Risk factor modification Medical therapy DESCRIPTION OF PROCEDURE The patient arrived to the procedure lab. The risks and benefits of the procedure as well as a full description of our services here and current unavailability of surgical backup were fully explained to the patient and/or their significant other prior to the catheterization. The Timeout was completed, verifying the correct patient and procedure. The patient's procedural site was prepped and draped in the usual fashion. Local anesthetic was given subcutaneously to right radial region with Lidocaine 2%. Using a modified Seldinger technique, arterial access was obtained via the right radial artery, a 6Fr sheath was inserted. Right Coronary Artery selective angiography was then p erformed in multiple views using a 5 Fr. 4.0 [place] catheter. Left Coronary Artery selective angiography was performed in multiple views using a 5 Fr. JL3.5 catheter. Left Ventriculography was performed in [place] projection using a 5 Fr. Pigtail catheter. LV to AO pullback pressures were then recorded.The arterial sheath was pulled and a TR Band was applied for hemostasis 12cc air inserted CORONARY ANGIOGRAPHY DOMINANCE: Right Dominant LEFT HEART ASSESSMENT Left Ventricular Ejection Fraction: by LV Gram 55 % Normal LV wall motion Elevated Left Ventricular End Diastolic Pressure LVEDP: 26 mmHg LEFT MAIN: Proximal: Eccentric: 25 % Stenosis, Distal: 10 - 25 % Stenosis LEFT ANTERIOR DESCENDING ARTERY: Mild luminal irregularities DIAGONAL 1: Ostial - 25 % Stenosis DIAGONAL 2: Ostial - 25 % Stenosis CIRCUMFLEX ARTERY: Mild luminal irregularities RIGHT CORONARY ARTERY: Mild luminal irregularities Mid to Distal: Diffuse Ectatic Changes AORTIC ROOT: Angiographically normal Medical Necessity - Tobacco Use Smoking Status: Former smoker Tobacco Use: Cigarettes Assessment/Plan 1. CAD The patient does appear to have an element of CAD. However he did not have angiographically discrete appearing stenosis to warrant PCI or CABG. At the present time he will continue risk factor modification medical management. He will be asked to have outpatient cardiovascular follow-up and outpatient exercise tolerance test/imaging study to further evaluate his CAD process for the need for additional evaluation and/or care. 2. Abnormal cardiac enzymes: Non-ST segment elevation [place] Again he has abnormal cardiac enzymes based upon his outside hospital high- sensitivity troponin I level. This does raise concerns of a non-ST segment elevation [place]. He has undergone evaluation both noninvasively and invasively. The results are noted. At the present time he will continue his medical management and outpatient follow-up as noted. 3. Hyperlipidemia He will continue medical management. 4. Hypertension He will continue medical therapy with adjustment as needed. Comment: The patient's case was discussed and reviewed with the patient and his daughter Arianna who is a [facility] RN. This note was generated using a voice recognition system and there may be incorrect words, spelling or punctuation that were not noted when reviewing the office note prior to saving.
--- NOTE | 2020-06-20 12:56 | DS.PCM_ITS ---
<SudhirNy CUSTOMER EXPERIENCE ANALYST - Last Filed: 06/20/20 13:02> Discharge Date and Diagnosis - Problem List Patient Problems: Active and Suspected Problems (Last Updated 06/20/20 @ 09:05 by Valencia Nieves) Chest pain (Acute) Abnormal cardiac enzyme level (Acute) Date of Admission: 06/18/20 Date of Discharge: 06/20/20 - Primary Discharge Diagnosis Acute Problems: Active Problems (Last Updated 06/20/20 @ 09:05 by Valencia Nieves) 1. Chest pain, NSTEMI, mild nonobstructive CAD 2. Hypertension 3. Hyperlipidemia 4. GERD - Secondary Discharge Diagnosis Chronic Problems: Chronic Problems (Last Updated 06/20/20 @ 09:05 by Valencia Nieves) Atherosclerotic heart disease of [place] coronary artery without angina pectoris (Chronic) Hypertension (Chronic) Hyperlipidemia (Chronic) Hospital Course and Treatment Dr. Mendoza- Cardiology Operations: None Procedures: 2-D Echocardiogram, Cardiac catheterization Summary of Care Provided: The patient is a 59 year old M admitted 06/18/2020 due to chest pain. 1. Chest pain, NSTEMI, mild nonobstructive CAD- Cardiology consulted. Patient underwent cardiac catheterization which demonstrated left main proximal 25% stenosis, LAD with mild luminal irregularities, diagonal 125% stenosis, diagonal to 25% stenosis, RCA with mild luminal irregularities, circumflex artery with mild luminal irregularities. Echocardiogram demonstrated an EF of 55%. Plan to continue medical management. Continue aspirin, statin, Plavix, metoprolol, Imdur, lisinopril. Follow-up with cardiology in 2 weeks. 2. Hypertension-continue home amlodipine, lisinopril. Metoprolol and Imdur added. 3. Hyperlipidemia-increase to high-dose statin. 4. GERD-Home PPI increased to 40 mg daily. If patient has recurrent symptoms, can increase Protonix to 40 mg twice daily. General: Alert, Oriented x3, Cooperative HEENT: Atraumatic, PERRLA, EOMI, Normocephalic Neck: Supple, No JVD, Negative Carotid Bruits Lungs: Clear to auscultation, Normal air movement Cardiovascular: Regular rate, No murmurs Abdomen: Bowel Sounds Present, Soft, Non Tender, Non-Distended Extremities: No clubbing, No cyanosis, No edema, Capillary Refill Less than 3 Seconds Skin: No rashes, No breakdown Musculoskeletal: No Tenderness to Palpation of Joints or Extremities Neurological: Cranial nerves II-XII grossly intact Psych/Mental Status: Normal Affect, Appropriate Patient seen and examined prior to discharge. Physical assessment as noted above. Patient is stable for discharge with follow up recommendations as noted above. This patient was seen by BOBBI Gregory under the supervision of Dr. Rios. Patient Problems: Active and Suspected Problems (Last Updated 06/20/20 @ 09:05 by Valencia Nieves) Chest pain (Acute) Abnormal cardiac enzyme level (Acute) - Physical Exam Vitals/I&O's: Vital Signs Temp Pulse Resp BP Pulse Ox 98.3 F 61 14 118/80 92 06/20/20 10:00 06/20/20 12:02 06/20/20 11:44 06/20/20 11:44 06/20/20 11:44 Oxygen Delivery Method Room Air Weight: 205 lb 14.588 oz Body Mass Index (BMI) 31.1 Intake and Output for Last 24 Hours 06/18/20 06/19/20 06/20/20 23:59 23:59 23:59 Intake Total 240 / 720 1700 / 1700 420 / 420 Balance 240 / 720 1700 / 1700 420 / 420 Microbiology Past 72 Hours 06/19/20 12:25 Stool Stool Occult Blood ([place]) - Final Laboratory Results 06/20/20 06:07: WBC 10.0, RBC 4.27 L, Hgb 13.5, Hct 39.7 L, MCV 93.0, MCH 31.6, MCHC 34.0, RDW Std Deviation 43.8, RDW Coeff of Andres 12.8, Plt Count 181, MPV 10.0 06/20/20 06:07: PT 13.9, INR 1.1 06/20/20 06:07: Sodium 137, Potassium 4.1, Chloride 106, Carbon Dioxide 26.0, Anion Gap 5, BUN 17, Creatinine 0.87, Estim Creat Clear Calc 87.36, Est GFR (MDRD) Af Amer 116, Est GFR (MDRD) Non-Af 95, BUN/Creatinine Ratio 19.6, Glucose 111 H, Calcium 8.6 Current Medications Acetaminophen (Acetaminophen 325 Mg Tablet) 650 mg PO Q6H PRN PRN PRN Reason: Pain Score 1-10/Temp > 100.7 F Last Admin: 06/20/20 11:00 Dose: 650 mg Documented by: Amlodipine Besylate (Amlodipine 10 Mg Tablet) 10 mg PO DAILY [facility] Last Admin: 06/20/20 06:19 Dose: 10 mg Documented by: Aspirin (Aspirin 81 Mg Tab.Chew) 81 mg PO DAILY@0800 [facility] Last Admin: 06/20/20 06:19 Dose: 81 mg Documented by: Atorvastatin Calcium (Atorvastatin Calcium 80 Mg Tablet) 80 mg PO QHS [facility] Last Admin: 06/19/20 20:57 Dose: 80 mg Documented by: Clopidogrel Bisulfate (Clopidogrel Bisulfate 75 Mg Tablet) 75 mg PO DAILY [facility] Last Admin: 06/20/20 06:19 Dose: 75 mg Documented by: Sodium Chloride () 1,000 mls @ 0 mls/hr IV .Q0M [facility] Isosorbide Mononitrate (Isosorbide Mononitrate 30 Mg Tablet) 30 mg PO DAILY [facility] Last Admin: 06/20/20 11:01 Dose: 30 mg Documented by: Lisinopril (Lisinopril 40 Mg Tablet) 40 mg PO DAILY [facility] Last Admin: 06/20/20 06:19 Dose: 40 mg Documented by: Metoprolol Tartrate (Metoprolol Tartrate 25 Mg Tablet) 25 mg PO BID [facility] Last Admin: 06/20/20 06:19 Dose: 25 mg Documented by: Ondansetron HCl (Ondansetron 4 Mg/2 Ml Vial) 4 mg IV Q8H PRN PRN PRN Reason: NAUSEA/VOMITING Sodium Chloride (0.9% Saline Lock 10 Ml Syringe) 10 - 40 ml IV UD PRN PRN Reason: SALINE FLUSH Temazepam (Temazepam 15 Mg Capsule) 15 mg PO QHS PRN PRN PRN Reason: INSOMNIA Discharge Diet: Low fat/ Low Cholesterol Discharge Activity: - - Follow post cath instructions Call your doctor if you observe: Shortness of breath, Chest pain Home Medications: Medications to take at Discharge Lisinopril [Zestril] 40 mg PO DAILY 06/18/20 Amlodipine [Norvasc] 10 mg PO DAILY tab 06/20/20 Aspirin [Aspirin, Baby] 81 mg PO DAILY@0800 #60 tab.chew 06/20/20 Atorvastatin Calcium [Lipitor] 80 mg PO QHS #60 tab 06/20/20 Clopidogrel Bisulfate [Plavix] 75 mg PO DAILY #60 tab 06/20/20 Isosorbide Mononitrate [Imdur] 30 mg PO DAILY #60 tab 06/20/20 Metoprolol Tartrate [Lopressor (beta giles)] 25 mg PO BID #120 tab 06/20/20 Pantoprazole Sodium [Protonix] 40 mg PO DAILY #60 tab 06/20/20 Following Prescriptions Were Given to Patient: Aspirin [Aspirin, Baby] 81 mg PO DAILY@0800 #60 tab.chew Transmission Status: Received by [facility]/pharmacy #[id number] Isosorbide Mononitrate [Imdur] 30 mg PO DAILY #60 tab Transmission Status: Re[facility] by [facility]acy #[id number] Atorvastatin Calcium [Lipitor] 80 mg PO QHS #60 tab Transmission Status: Received by [facility]/pharmacy #[id number] Metoprolol Tartrate [Lopressor (beta giles)] 25 mg PO BID #120 tab Transmission Status: Received by [facility]/pharmacy #[id number] Clopidogrel Bisulfate [Plavix] 75 mg PO DAILY #60 tab Transmission Status: Received by [facility]/pharmacy #[id number] Pantoprazole Sodium [Protonix] 40 mg PO DAILY #60 tab Transmission Status: Received by [facility]/pharmacy #[id number] Primary Care Physician: Care Physician,No Primary [Primary Care Provider] - Please follow up with your Primary Care Physician in: 1 Week Please Follow Up With: Edi Mendoza MD When: 2 Weeks Disposition: Home Minutes spent on discharge:: 35 Patient Condition:: Stable Medical Necessity - Tobacco Use Smoking Status: Former smoker Tobacco Use: Cigarettes Meaningful Use Info Meaningful Use Diagnoses (Choose all that apply): AMI - AMI/Post PCI/Angioplasty Aspirin given w/in 24hrs of arrival?: Yes ASA at discharge?: Yes Statins at discharge?: Yes Sadiq/ARB at discharge?: Yes Beta Giles at discharge?: Yes Done w/ Acute [place] measure.: Yes <Abdelrahman Rios - Last Filed: 06/20/20 15:22> Discharge Date and Diagnosis - Primary Discharge Diagnosis Acute Problems: Active Problems (Last Updated 06/20/20 @ 09:05 by Valencia Nieves) Chest pain (Acute) Abnormal cardiac enzyme level (Acute) - Secondary Discharge Diagnosis Chronic Problems: Chronic Problems (Last Updated 06/20/20 @ 09:05 by Valencia Nieves) Atherosclerotic heart disease of [place] coronary artery without angina pectoris (Chronic) Hypertension (Chronic) Hyperlipidemia (Chronic) Hospital Course and Treatment Operations: None Procedures: 2-D Echocardiogram, Cardiac catheterization Summary of Care Provided: Patient seen and examined independently. Data reviewed. I agree with the above note by the nurse practitioner. The patient is a 59 year old M presents with chest pain. Patient has slight elevation in his cardiac markers. Patient underwent left heart catheterization that showed nonobstructive coronary artery disease. Patient had echocardiogram that showed an EF of 55%. Patient is otherwise feeling well no additional work- up is necessary during this hospitalization. Patient will follow up with cardiology as outpatient for any additional recommendations. Patient will mario nue with medical therapy in the interim. [] - Physical Exam Vitals/I&O's: Vital Signs Temp Pulse Resp BP Pulse Ox 36.6 C 60 15 110/70 93 06/20/20 13:24 06/20/20 13:24 06/20/20 13:24 06/20/20 13:24 06/20/20 13:24 Oxygen Delivery Method Room Air Weight: 93.4 kg Body Mass Index (BMI) 31.1 Intake and Output for Last 24 Hours 06/18/20 06/19/20 06/20/20 23:59 23:59 23:59 Intake Total 240 / 720 1700 / 1700 420 / 420 Balance 240 / 720 1700 / 1700 420 / 420 General: Alert, No apparent distress HEENT: Atraumatic, Normocephalic Oral: Moist Mucosa, No Gingival or Mucosal Lesions/ Ulcerations Neck: No Nodes, Thyroid Normal Size and Texture Lungs: Clear to auscultation, Normal air movement, No rhonchi, No wheeze, No rales Cardiovascular: Regular rate, Regular Rhythm, Normal S1, Normal S2, No murmurs Abdomen: Bowel Sounds Present, Soft, Non Tender, Non-Distended, No Hepato- splenomegaly Extremities: No edema, No Calf Tenderness Skin: No rashes, No breakdown Microbiology Past 72 Hours 06/19/20 12:25 Stool Stool Occult Blood ([place]) - Final Laboratory Results 06/20/20 06:07: WBC 10.0, RBC 4.27 L, Hgb 13.5, Hct 39.7 L, MCV 93.0, MCH 31.6, MCHC 34.0, RDW Std Deviation 43.8, RDW Coeff of Andres 12.8, Plt Count 181, MPV 10.0 06/20/20 06:07: PT 13.9, INR 1.1 06/20/20 06:07: Sodium 137, Potassium 4.1, Chloride 106, Carbon Dioxide 26.0, Anion Gap 5, BUN 17, Creatinine 0.87, Estim Creat Clear Calc 87.36, Est GFR (MDRD) Af Amer 116, Est GFR (MDRD) Non-Af 95, BUN/Creatinine Ratio 19.6, Glucose 111 H, Calcium 8.6 Discharge Diet: Low fat/ Low Cholesterol Discharge Activity: - Call your doctor if you observe: Shortness of breath, Chest pain Disposition: Home Minutes spent on discharge:: 35 Patient Condition:: Stable Medical Necessity - Tobacco Use Smoking Status: Former smoker Tobacco Use: Cigarettes Meaningful Use Info Meaningful Use Diagnoses (Choose all that apply): AMI - AMI/Post PCI/Angioplasty Aspirin given w/in 24hrs of arrival?: Yes ASA at discharge?: Yes Statins at discharge?: Yes Sadiq/ARB at discharge?: Yes Beta Giles at discharge?: Yes Done w/ Acute [place] measure.: Yes Inpatient E&M: [id number] Disch Hosp
--- NOTE | 2020-06-20 13:30 | CASEMGMT ---
RN CM Face to Face with patient for initial transition planning/care coordination assessment. RN CM introduced self and role at [facility]. Patient lying in bed, alert and oriented. Patient willing to participate in assessment and is able to answer all questions appropriately. Care providers, pharmacy, and demographics verified. Patient wishes to discharge home, denies need for home health at this time. Patient states he has no further needs or concerns at this time. CM to follow for discharge planning needs that may arise. PCP: [place] Specialists: None Preferred Pharmacy: [facility] Insurance: MMO Prescription Benefit: yes Living Will/HPOA: yes, Ammi Mast HPOA LNOK: Living Arrangements: Patient lives with with in a 2 story home with bed and bath on first floor. Patient states is independent at home. Transportation: self/ DME/HHC: Patient state he has cane, walker, raised toilet, shower chair, grab bars at home. Patient denies previous HHC. Disposition Plan: Patient to discharge home with family support and follow-up plans in place. Thu MAYERS, RN, CM
== END 2020-06-20 14:10 | disposition home or self-care (01) | DRG 282 ==
LOC: PCU 06-20 07:29 → ICU 06-20 10:43
PROVIDERS: Hospitalist; Nurse Practitioner Family; Admitting Provider Internal Medicine
DX: I21.4 Non-ST elevation (NSTEMI) myocardial infarction (principal); I25.110 Atherosclerotic heart disease of native coronary artery with unstable angina pectoris; I10 Essential (primary) hypertension; E78.5 Hyperlipidemia, unspecified; K21.9 Gastro-esophageal reflux disease without esophagitis; Z79.82 Long term (current) use of aspirin; Z79.899 Other long term (current) drug therapy; Z87.891 Personal history of nicotine dependence; Z82.49 Family history of ischemic heart disease and other diseases of the circulatory system
CPT/HCPCS: 36415; 80048; 82274; 84484; 85025; 85027; 85610; 93005; 93306; 93458; 94762; 97802; 99152; 99153; J7030; J7040; Q9957; Q9967; A4216; C1769; C1894

== ENCOUNTER → 2020-07-22 05:48 | Outpatient (CLI) | payer OTHER, SELFPAY ==
[2020-07-06 08:30] VITALS: BMI 31.0
--- NOTE | 2020-07-22 12:14 | STRESSREP ---
Stress Test Report Date: 07-22-2020 Procedure: Exercise tolerance test/imaging study Indications: Chest pain; CAD Consent: Per the patient Procedure: The patient exercised on a Markos protocol for 5 minutes completing Stage I and 2 minutes of Stage II achieving a peak heart rate of 139 bpm (86% predicted maximal heart rate) with a peak blood pressure 170/80 mmHg and a peak MET capacity of 7 METs. The baseline ECG demonstrated normal sinus rhythm. The peak exercise ECG demonstrated somatic/motion artifact with no obvious ECG changes. There was a rare PVC pretest. The functional capacity was considered decreased. There was no complaint of chest discomfort during exercise or recovery. The examination was discontinued secondary to discomfort. Impression: 1. Technically adequate (percent predicted maximal heart rate greater than 85%) exercise tolerance test 2. Peak exercise ECG with somatic/motion artifact with no obvious ECG changes 3. There was a rare PVC pretest 4. Nuclear images pending Myocardial perfusion imaging study: Technique: The patient was injected with 11.9 mCi of technetium 99m Cardiolite and subsequently rest SPECT Cardiolite nuclear imaging was obtained in the horizontal long, vertical long, and short axis views. The patient exercised on a Markos protocol for 5 minutes completing Stage I and 2 minutes of Stage II achieving a peak heart rate of 139 bpm (86% predicted maximal heart rate) with a peak blood pressure 170/80 mmHg and a peak MET capacity of 7 METs. The patient was injected with 34.4 mCi of technetium 99m Cardiolite and subsequently stress SPECT Cardiolite nuclear imaging was obtained in the horizontal long, vertical long, and short axis views. A gated Cardiolite study at peak stress was obtained. Interpretation: Rest and stress SPECT Cardiolite nuclear imaging status post realignment, normalization, and attenuation correction, demonstrates the appearance of relative uniform tracer uptake and myocardial perfusion appearing within normal limits. There is end systolic thickening and brightening. The gated Cardiolite study demonstrates myocardial thickening and inward wall motion. The reported LVEF is 55%. Impression: 1. Rest and stress SPECT Cardiolite nuclear imaging demonstrate relative uniform tracer uptake and myocardial perfusion appearing within normal limits. 2. The gated Cardiolite study reports an LVEF of 55%. This note was generated with [employer] software. It may contain incorrect words, spelling, and punctuation that were not noted in checking the note before signing.
== END ==
PROVIDERS: PCP Family Medicine; Referring Provider Physician Assistant Medical; Visit Provider Physician Assistant Medical
DX: R07.9 Chest pain, unspecified (principal); I25.10 Atherosclerotic heart disease of native coronary artery without angina pectoris; I10 Essential (primary) hypertension; E78.5 Hyperlipidemia, unspecified; R74.9 Abnormal serum enzyme level, unspecified
CPT/HCPCS: 78452; 93017; A9500; A4216

== ENCOUNTER 2020-10-25 08:29 | Emergency (ER) | payer OTHER, SELFPAY ==
[2020-07-06 08:30] VITALS: BMI 31.0
[2020-10-25 08:29] VITALS: BP 184/100; PULSE 69; RESP 16; TEMP 36.5; O2SAT 95; BMI 32.1
--- NOTE | 2020-10-25 08:50 | CT_ITS ---
STUDY: CT CERVICAL SPINE WITHOUT CONTRAST REASON FOR EXAM: Male, 60 years old. Trauma fall. Fall from a height of 8'' with posterior right shoulder/rib pain. RADIATION DOSAGE (If Supplied By Facility): CTDIvol = ( 26.31 ) mGy, DLP = ( 533.76 ) mGycm TECHNIQUE: High resolution transaxial imaging was performed without contrast material. Sagittal and coronal images were reconstructed. Individualized dose optimization techniques were used for this CT. COMPARISON: None FINDINGS: Normal craniovertebral junction. There are degenerative changes of the anterior atlantoaxial articulation. Normal odontoid process. There is straightening of the normal cervical lordosis. Normal vertebral bodies and posterior osseous elements. C2-3: Facet joint hypertrophy with osteoarthritis on the right side. No significant stenosis is seen. C3-4: Minimal anterior listhesis of C3 3 on C4. Hypertrophy of the right facet joint with osteoarthritis. Uncovertebral arthrosis. Moderate degree of right neural foraminal stenosis. C4-5: Moderate degree of disc space narrowing and anterior spondylosis. Uncovertebral arthrosis. Facet joint osteoarthritis and hypertrophy worse on the right side. Moderate degree of right neural foraminal stenosis and mild degree of left neural foraminal stenosis. C5-6: Marked degree of disc space narrowing. Spondylosis. Mild degree of bilateral neural foraminal stenosis. C6-7: Marked degree of disc space narrowing and spondylosis. Uncovertebral arthrosis. Mild degree of bilateral neural foraminal stenosis. C7-T1: Normal endplates. Normal disc height and morphology. Normal central canal and intervertebral neuroforamina. Normal visualized soft tissue structures. CT/Spine Cervical without Contras IMPRESSION: Multilevel degenerative changes, as described above. Electronically Signed: Jimmy Jiang MD at 10:19 EDT , Service support ,
--- NOTE | 2020-10-25 08:50 | CT_ITS ---
STUDY: CT CHEST, ABDOMEN T PELVIS WITH CONTRAST REASON FOR EXAM: Male, 60 years old. Trauma r rib and back/flank pain. RADIATION DOSAGE (If Supplied By Facility): CTDIvol = ( 21.51 ) mGy, DLP = ( 2213.70 ) mGycm TECHNIQUE: Transaxial imaging was performed following intravenous administration of IV 100mL Isovue-300. Individualized dose optimization techniques were used for this CT. COMPARISON: No relevant priors. FINDINGS: CHEST Small amount of air is seen within the deep pectoralis muscle on the right side adjacent to the costochondral junction anteriorly. This most likely is secondary to a nondisplaced anterior rib fracture. A tiny amount of air is also seen within the right pericardial fat pad. Small right pleural effusion. Small amount of fluid is seen in the right major fissure. Mild degree of increased markings in the anterior aspect of the right lower lobe suggestive of possible contusion with the patient''s history of trauma. Increased markings are also seen in the posterior aspect of the right lower lobe. No definite pneumothorax is seen. Calcification of the mitral valve annulus. Normal mediastinum. Normal hilar regions. Normal unenhanced pulmonary arteries. Normal aorta arch and descending thoracic aorta. Normal osseous structures. There is no demonstrated abnormality of the visualized upper abdomen. ABDOMEN The visualized lung bases are unremarkable. The visualized portions of the heart are within normal limits. Normal liver. Normal gallbladder and extrahepatic biliary system. Normal spleen. Normal pancreas. Normal bilateral adrenal glands. Bilateral parapelvic renal cysts. There is a small hiatal hernia. Normal small intestine. Normal colon. The appendix is visualized and appears normal. There is scattered atherosclerotic calcification of the abdominal aorta, without a demonstrated aneurysm. Normal inferior vena cava. Normal retroperitoneum. There is a small umbilical hernia containing fat. There are diffuse degenerative changes of the visualized lumbar spine. PELVIS Normal urinary bladder. Normal visualized small intestine. There are multiple colonic diverticula of the sigmoid colon consistent with chronic diverticulosis. There is no pelvic fluid. There is no pelvic lymphadenopathy or mass lesion. Normal visualized pelvic arteries. Normal abdominal wall. There are diffuse degenerative changes of the visualized lumbar spine. CT/CT Chest, Abd, Pel w/Contrast IMPRESSION: Small right pleural effusion with fluid in the right major fissure. Findings suggestive of a contusion along the anterior aspect of the right lower lobe with mild degree of right posterior atelectasis. Small amount of air is seen in the deep right pectoralis muscle. Underlying anterior lower rib fractures should be ruled out. Electronically Signed: Jimmy Jiang MD at 10:26 EDT , Service support ,
--- NOTE | 2020-10-25 08:50 | CT_ITS ---
STUDY: CT BRAIN WITHOUT CONTRAST REASON FOR EXAM: Male, 60 years old. Trauma fall from a height of 8''. Posterior right rib pain and shoulder pain. RADIATION DOSAGE (If Supplied By Facility): CTDIvol = ( 44.99 ) mGy, DLP = ( 829.85 ) mGycm TECHNIQUE: Transaxial CT imaging of the brain was performed without administration of intravenous contrast material. Individualized dose optimization techniques were used for this CT. COMPARISON: No relevant priors. FINDINGS: Normal soft tissue structures. Normal calvarium. Normal size ventricles and extra-axial spaces for the patient''s age. Normal white matter tracts of the cerebral hemispheres. Normal basal ganglia and thalami. Normal brainstem. Normal cerebellum. There is no intracranial hemorrhage. There are no findings of an acute ischemic infarction. Normal visualized paranasal sinuses. CT/Brain/Head without Contrast IMPRESSION: Normal unenhanced CT scan of the brain. Electronically Signed: Jimmy Jiang MD at 10:20 EDT , Service support ,
[2020-10-25] MEDS: Morphine 4 MG/ML Syringe IV ×2 (09:19→11:36)
[2020-10-25] MEDS: Ondansetron 4 MG/2 ML Vial IV (09:19)
[2020-10-25 09:37] LABS: Anion Gap 4 (5-15); BUN 14 mg/dL (7-18); BUN/Creat Ratio 13.2 RATIO (10-20); Chloride 102 mmol/L (98-107); Creatinine, Serum 1.06 mg/dL (0.70-1.30); EST Glomerular Filtration Rate 76 mL/min (>60); Est Glom Filt Rate - Afr Amer 91 mL/min (>60); Estimated Creatinine Clearance 73.18 ml/min; Glucose 190 mg/dL (74-106); Potassium 4.1 mmol/L (3.5-5.1); Sodium Level 137 mmol/L (136-145)
--- NOTE | 2020-10-25 10:57 | ED.VISSUMM ---
- ER Visit Summary Date of Service: 10/25/20 Chief Complaint: Fall History of Present Illness: The patient is a 60 M who fell prior to arrival about 8 feet from a hay hole. He denies hitting his head or neck or losing consciousness. He does take aspirin but no other blood thinners. He complains of pain mainly to his right mid back over his ribs. He had some paresthesias in his right hand as well but otherwise his review of systems was unremarkable. Physical Examination: Afebrile. Hypertensive. Otherwise vitals normal. 95% on room air. Head and neck show normal inspection and palpation. Heart is regular. Lungs are clear. Right posterior ribs are tender to palpation without crepitus, abnormal movement, deformity. Subjective paresthesias in his right hand but otherwise no neurologic symptoms or findings. Pulses strong and equal. Abdomen soft and nontender. Spine is nontender. Lower extremities unremarkable. Test Results: Metabolic panel unremarkable. CBC and INR pending. Covid test is pending. Emergency Department Course and Treatment: Patient presents with a fall and thorax trauma. Because of the paresthesias, I did check a CT of his head and neck, but had low suspicion for injuries there. Those CTs were negative. His CT chest/abdomen/pelvis showed small amount of air in his right pectoralis muscle and right pericardial fat pad. He may have an underlying rib fracture that is nondisplaced, however none were visualized on the CT. He also has a right pleural effusion and right lower lobe contusion. Because of these findings, I discussed with trauma, Dr. Abbott at [facility]. She advised admission for further care. We added on labs and a Covid test. We will send imaging disks. Treatment Plan: As above Disposition: Transfer Impression: Right pleural effusion, right pulmonary contusion This note was generated with [employer] dictation software. It may contain incorrect words, spelling, and punctuation that were not noted in review of the chart prior to signing ED Disposition - Plan for ED Patient: Referrals: Jeffrey Simmons MD [Primary Care Provider] -
[2020-10-25 11:21] LABS: Absolute Lymphocyte Count 0.84 X10^3/uL (0.83-4.51); Absolute Neutrophil Count 8.2 X10^3/uL (2.0-7.7); Basophil# 0.04 X10^3/uL; Basophil% 0.4 % (0-1); Eosinophil# 0.08 X10^3/uL; Eosinophils% 0.8 % (0-5); Hematocrit 45.2 % (40-54); Hemoglobin 15.1 g/dL (13.0-16.5); Lymphocyte # 0.84 X10^3/ul (4.0); Lymphocyte % 8.5 % (19-41); Mean Corp Hgb Conc 33.4 g/dL (32-36); Mean Corpuscular Hgb 31.3 pg (27.0-32.0); Mean Corpuscular Volume 93.8 fL (80-94); Mean Platelet Vol. 10.3 fl (6.2-12.0); Monocyte# 0.62 X10^3/uL; Monocyte% 6.3 % (0-10); NRBC Flagged by Analyzer 0 % (0-5); Neutrophil % 83.3 % (47-70); Platelet Count 207 K/mm3 (150-450); RBC Distribution Width CV 13.3 % (11.6-14.6); RBC Distribution Width SD 45.8 fl (35.1-43.9); Red Blood Count 4.82 M/mm3 (4.6-6.2); White Blood Count 9.9 K/mm3 (4.4-11.0)
[2020-10-25 11:34] LABS: Prothrombin Time (Protime)PT. 12.7 SECONDS (11.7-14.9)
[2020-10-25 12:48] VITALS: BP 139/97; PULSE 67; RESP 28; O2SAT 96
[2020-10-25] MEDS: HYDROmorphone 1 MG/ML Syringe IV (13:31)
== END 2020-10-25 14:05 | disposition short-term general hospital (02) ==
LOC: ED 09:33
PROVIDERS: Emergency Provider Emergency Medicine; PCP Family Medicine
DX: S27.321A Contusion of lung, unilateral, initial encounter (principal); J90 Pleural effusion, not elsewhere classified; R20.2 Paresthesia of skin; W17.89XA Other fall from one level to another, initial encounter; Y93.9 Activity, unspecified; Y92.9 Unspecified place or not applicable; Y99.9 Unspecified external cause status; Z20.822 Contact with and (suspected) exposure to COVID-19; I10 Essential (primary) hypertension; Z79.82 Long term (current) use of aspirin; F17.200 Nicotine dependence, unspecified, uncomplicated
CPT/HCPCS: 36415; 70450; 71260; 72125; 74177; 80048; 85025; 85610; 87426; 96374; 96375; 96376; 99285; Q9967; A4216; J2405

== ENCOUNTER 2022-08-15 00:11 | Emergency (ER) | payer OTHER, SELFPAY ==
[2022-08-15 00:12] VITALS: BP 167/99; PULSE 101; RESP 18; TEMP 36.6; O2SAT 97; BMI 31.8
--- NOTE | 2022-08-15 00:32 | RAD_ITS ---
INDICATION: chest pain EXAMINATION/TECHNIQUE: X-RAY - XR Chest 1 View COMPARISON: None. FINDINGS: LINES/DEVICES: None. LUNGS: No consolidation, edema or effusion. No pneumothorax. MEDIASTINUM AND CARDIOVASCULAR STRUCTURES: Cardiac silhouette not enlarged. Central airways and mediastinal contour are unremarkable. BONES AND SOFT TISSUES: Unremarkable. RAD/Chest 1 View (Portable) IMPRESSION: No radiographic evidence of acute cardiopulmonary disease. Electronically Signed: Nereyda Medina MD at 0:54 EST ,
--- NOTE | 2022-08-15 00:32 | EKG12_ITS ---
Test Reason : CP Blood Pressure : / mmHG Vent. Rate : 093 BPM Atrial Rate : 093 BPM P-R Int : 162 ms QRS Dur : 108 ms QT Int : 340 ms P-R-T Axes : 056 -33 026 degrees QTc Int : 422 ms Normal sinus rhythm Left axis deviation Abnormal ECG Confirmed by ZINA WANG, RAFAEL ([id number]), photograph editor AUNG BRAN ([id number]) on 08/15/2022 2:00:09 PM Referred By: GUANACO Confirmed By:RAFAEL IZAGUIRRE MD
[2022-08-15 00:42] LABS: Absolute Lymphocyte Count 1.67 X10^3/uL (0.83-4.51); Basophil# 0.05 X10^3/uL; Basophil% 0.4 % (0-1); Eosinophil# 0.12 X10^3/uL; Hemoglobin 15.2 g/dL (13.0-16.5); Lymphocyte # 1.67 X10^3/ul (0.83-4.51); Lymphocyte % 13.9 % (19-41); Mean Corp Hgb Conc 33.8 g/dL (32-36); Mean Corpuscular Hgb 30.9 pg (27.0-32.0); Mean Corpuscular Volume 91.5 fL (80-94); Mean Platelet Vol. 10.4 fl (6.2-12.0); Monocyte# 1.08 X10^3/uL; NRBC Flagged by Analyzer 0 % (0-5); Neutrophil # 9.01 X10^3/uL (2.7-7.7); Neutrophil % 75.1 % (47-70); Platelet Count 197 K/mm3 (150-450); RBC Distribution Width CV 13.4 % (11.6-14.6); RBC Distribution Width SD 45.7 fl (35.1-43.9); Red Blood Count 4.92 M/mm3 (4.6-6.2)
--- NOTE | 2022-08-15 00:47 | EDS_ITS ---
HPI History of Present Illness Chief Complaint: Chest Pain Detail of Chief Complaint: Midsternal Informant: patient Onset/Context/Timing Onset: Today and Hours Activity at onset: gradual Timing: Continuous Quality: Positive for Aching Location: Substernal Current Severity: Gone Maximum Severity: Moderate Worsened By: Nothing Relieved By: - (Aspirin and possibly reflux meds) Associated Symptoms: Negative for Nausea, Vomiting, Diaphoresis, Dyspnea, Cough, Fever, Lightheadedness, Acid Reflux or Palpitations Narrative Narrative: 61-year-old male history of hypertension. States that a cardiac catheterization done in 2020 and states that was negative. He is never had a DVT or PE. 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 Today he was in [place], [place]. He was driving home around 3 PM got onset of midsternal chest discomfort he describes as an ache. Started around 3 PM lasted till around 11. Said he took an aspirin and some reflux meds that seem to improve his discomfort. Denies any sweating. No prior history of DVT or PE no leg pain or swelling. No hemoptysis. No recent hospitalization or surgery. Currently he is pain free. He denies any recent exertional dyspnea or exertional chest pain Prior Similar Symptoms: No Recent Illness/Hospitalization: No CVD Risk Factors: Positive for Hypertension and Hypercholesterolemia; Negative for Diabetes or Smoking PE Risk Factors: Positive for Recent Travel/Surgery; Negative for Recent Immobilization, Prior DVT or PE, Cancer or OCP + Smoking + >/=35 TAD Risk Factors: Negative for Marfan's Syndrome [facility] Medical History Atherosclerotic heart disease of [place] coronary artery without angina pectoris Hyperlipidemia Hypertension Home Medications lisinopril 40 mg tablet 40 mg PO DAILY blood pressure 06/18/20 [History Last Taken Unknown] amlodipine 10 mg tablet 10 mg PO DAILY #1 TAB 07/06/20 [Rx Last Taken Unknown] Allergy/AdvReac Type Severity Reaction Status Date / Time No Known Allergies Allergy Verified 12/05/20 15:01 Surgical History History of left heart catheterization (LHC) (~06/20/20) Social History Smoking Status: Former smoker ROS ROS ED ROS Narrative Chest pain. Nonexertional. Review of Systems ROS Unobtainable: Denies due to encephalopathy Constitutional Constitutional ED: Denies chills or fever(s) Eyes Eyes: Reports none ENT ENT ED: Denies ear pain Cardiovascular Cardiovascular: Reports as per HPI and chest pain; Denies palpitations Respiratory/Chest Respiratory/Chest: Denies cough or dyspnea Gastrointestinal Gastrointestinal: Denies abdominal pain Genitourinary Genitourinary ED: Denies dysuria or hematuria Musculoskeletal Musculoskeletal: Denies arthralgias Integumentary Denies abscess Neurologic Neurologic: Denies headache(s) Psychiatric Psychiatric: Denies anxiety Endocrine Endocrinology: Denies cold intolerance Hematologic/Lymphatic Hematologic/Lymphatic: Denies easy bleeding or easy bruising Allergic/Immunologic Allergic/Immunologic ED: Denies mouth swelling or tongue swelling EXAM Physical Exam Narrative Exam Narrative: 61-year-old male with nonexertional chest pain today. Initially told me he had a negative heart cath I read the results that he did have a some mild coronary disease in 2020. Currently symptom-free. Undergo a cardiac work-up. 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 Has had no hemoptysis. No leg pain or swelling. Clinically I do not think this was a dissection. He has had no back pain. Const Vital Signs: 08/15/22 00:12 08/15/22 00:20 08/15/22 00:48 Temperature 97.9 F Temperature Source Oral Pulse Rate 101 H Respiratory Rate 18 Respiratory Effort Normal Non-Labored Blood Pressure 167/99 H Blood Pressure Mean 121 Pulse Ox 97 Oxygen Delivery Method Room Air Room Air 08/15/22 02:28 Temperature Temperature Source Pulse Rate 96 Respiratory Rate 18 Respiratory Effort Blood Pressure 151/95 H Blood Pressure Mean 113 Pulse Ox 95 Oxygen Delivery Method Room Air Positive well nourished, well developed and obese; Negative for cachectic, contractures or unkempt General Appearance ED: well developed and NAD; Negative for unkempt, cachectic, contractures or pallor Nutritional Appearance: obese; Negative for cachectic HEENT Reports moist mucous membranes normocephalic and atraumatic; Negative for trauma or tenderness Eyes PERRL and EOMs intact bilaterally General Eye ED: Negative for pale conjunctiva or scleral icterus Neck no lymphadenopathy, supple and no JVD General: Negative for tenderness Chest Wall inspection of chest normal and palpation of chest normal Chest: Negative for tenderness Resp normal respiratory effort and clear to auscultation bilaterally Effort and Inspection: Negative for respiratory distress Auscultation: Negative for rales, rhonchi or wheezes Cardio regular rate, regular rhythm, S1 normal heart sound, S2 normal heart sound and no murmurs Peripheral Pulses: pulses 2+ throughout GI normal to inspection, nondistended, normoactive bowel sounds, soft to palpation, non-tender, non-distended and no masses Auscultation: Negative for hyperactive bowel sounds Palpation: Negative for splenomegaly Back/Spine no CVA tenderness and no thoracic nor lumbar tenderness General Back: Negative for CVA tenderness Cervical Spine: Negative for cervical spine tenderness Extremity normal to inspection General Extremety ED: Negative for edema, pulses abnormal or tenderness General Extremity: Negative for edema or pulses abnormal Neuro oriented x3 Sensorium / Orientation: awake, alert, oriented to person, oriented to place and oriented to time; Negative for confused, lethargic, stuporous or other Motor Exam: strength 5/5 throughout Psych mental status grossly normal Appearance: Negative for unkempt Attitude: No agitated Mood & Affect: Negative for depressed, anxious or tearful Skin no wounds General Skin Exam: Negative for jaundice or pallor Heart Score History: Moderately Suspicious ECG: Normal Age: >45 - <65 years Risk Factors: >/= 3 Risk Factors or History of CAD Troponin: </= Normal Limit Score: 4 MDM MDM MDM Narrative Medical decision making narrative: 61-year-old male with nonexertional midsternal chest pain. He does have a history of coronary disease heart cath 1-1/2 2 years ago. Undergo cardiac work- up. 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 A D-dimer also be obtained. Repeat exam patient is doing well at 3:18 AM pain-free. He has had 2 negative troponins at 7 each. Negative CTA of his chest. Normal EKG. We discussed and gone over all his test. I reviewed his old records he had a heart catheterization done in June 2022 + years ago. And a negative stress test a year ago in 2020. Will be discharged home with outpatient follow-up. Both he and his daughter are comfortable with the plan. Lab Data Attestation: I reviewed the patient's lab results. Lab results narrative: CBC White count of 12. H&H of 15 and 45. Platelets 197. Chemistries unremarkable gap of 7 normal BUN and creatinine. Glucose 242. Troponin normal at 7. D-dimer is elevated 0.98 so a CTA of the chest to be obtained. Chest x-ray unremarkable. Chronic changes. Second troponin was again 7 and normal. No change. CTA of the chest showed no PE nor dissection. No significant abnormality. Read by the radiologist and reviewed by me. Labs: Laboratory Results - last 24 hr 08/15/22 08/15/22 08/15/22 00:17 00:17 00:17 WBC 12.0 H RBC 4.92 Hgb 15.2 Hct 45.0 MCV 91.5 MCH 30.9 MCHC 33.8 RDW Std Deviation 45.7 H RDW Coeff of Andres 13.4 Plt Count 197 MPV 10.4 Immature Gran % (Auto) 0.600 Neut % (Auto) 75.1 H Lymph % (Auto) 13.9 L [place] % (Auto) 9.0 Eos % (Auto) 1.0 Baso % (Auto) 0.4 Absolute Neuts (auto) 9.0 H Absolute Lymphs (auto) 1.67 Nucleated RBC % 0 D-Dimer Quant (PE/DVT) 0.98 H* Sodium 136 Potassium 3.7 Chloride 102 Carbon Dioxide 27.0 Anion Gap 7 BUN 11 Creatinine 1.08 Estim Creat Clear Calc 70.92 Est GFR (MDRD) Af Amer 89 Est GFR (MDRD) Non-Af 73 BUN/Creatinine Ratio 10.2 Glucose 242 H Calcium 8.8 Troponin I High Sens 7 08/15/22 02:28 WBC RBC Hgb Hct MCV MCH MCHC RDW Std Deviation RDW Coeff of Andres Plt Count MPV Immature Gran % (Auto) Neut % (Auto) Lymph % (Auto) [place] % (Auto) Eos % (Auto) Baso % (Auto) Absolute Neuts (auto) Absolute Lymphs (auto) Nucleated RBC % D-Dimer Quant (PE/DVT) Sodium Potassium Chloride Carbon Dioxide Anion Gap BUN Creatinine Estim Creat Clear Calc Est GFR (MDRD) Af Amer Est GFR (MDRD) Non-Af BUN/Creatinine Ratio Glucose Calcium Troponin I High Sens 7 Radiography Chest X-Ray - ED: 1 View, Read by ED Physician, Heart, Lungs, Mediastinum, Bony Structures and Chronic Changes Diagnostic Testing: Clinical Impression(s) from Imaging Studies Chest X-Ray 08/15/22 00:32 IMPRESSION: No radiographic evidence of acute cardiopulmonary disease. Electronically Signed: Nereyda Medina MD at 0:54 EST , Chest CTA 08/15/22 01:15 IMPRESSION: No demonstrated pulmonary embolism or arterial dissection. Electronically Signed: Nereyda Medina MD at 2:58 EST , Chest x-ray, portable, single view interpreted by myself shows no acute process. Chronic changes. Normal cardiac silhouette mediastinum. Rhythm Strip Rhythm Strip: Sinus Rhythm Rate: 93 Ectopy: None EKG Initial EKG: Attestation: I personally reviewed and interpreted this EKG as follows: Interpretation: Sinus Rhythm and No Acute Injury Pattern Comments: Normal sinus rhythm rate of 93 no acute signs of ME or ischemia. Discharge Plan Triage Chief Complaint: Chest Pain ED Provider: Moncho Biggs Dx/Rx/DC Orders Clinical Impression: Chest pain, Hypertension Instructions: ED Chest Pain, Uncertain Cause Prescriptions: No Action amlodipine 10 mg tablet 10 mg PO DAILY Qty: 1 0RF lisinopril 40 MG tablet 40 mg PO DAILY Primary Care Provider: Jeffrey Simmons Referrals: Jeffrey Simmons MD [Primary Care Provider] - 1 Week Activity Restrictions/Additional Instructions: Your test tonight were unremarkable. No blood clot. No signs of heart attack. Your labs were good. Follow-up with your doctor. Return if feeling worse. This could be reflux or even musculoskeletal pain. Disposition Disposition: Home, Self Care
[2022-08-15 01:03] LABS: Anion Gap 7 (5-15); BUN 11 mg/dL (7-18); BUN/Creat Ratio 10.2 RATIO (10-20); Calcium,Total 8.8 mg/dL (8.5-10.1); Chloride 102 mmol/L (98-107); Creatinine, Serum 1.08 mg/dL (0.70-1.30); EST Glomerular Filtration Rate 73 mL/min (>60); Est Glom Filt Rate - Afr Amer 89 mL/min (>60); Estimated Creatinine Clearance 70.92 ml/min; Glucose 242 mg/dL (74-106); Potassium 3.7 mmol/L (3.5-5.1); Sodium Level 136 mmol/L (136-145); Troponin-I HS (w/2H Reflex) 7 pg/mL (3.0-78.0)
[2022-08-15 01:08] LABS: D-Dimer Quantitative (DVT/PE) 0.98 FEU/ug/m (0.27-0.49)
--- NOTE | 2022-08-15 01:15 | CT_ITS ---
STUDY: CTA CHEST REASON FOR EXAM: Male, 61 years old. chest pain elevated d-dimer RADIATION DOSAGE (If Supplied By Facility): CTDIvol = ( 21.75 ) mGy, DLP = ( 547.19 ) mGycm TECHNIQUE: The examination was performed with the intravenous administration of IV 100mL Isovue-370. Post-processing of the angiographic images was performed, with multiplanar reformation and 3D reconstruction. Individualized dose optimization techniques were used for this CT. COMPARISON: None. FINDINGS: Normal enhancement of the main pulmonary artery and right and left pulmonary arteries. Normal enhancement of the bilateral peripheral pulmonary arteries. There is no demonstrated pulmonary embolism. Normal thoracic aorta and visualized great vessels. There is no demonstrated aortic dissection. Normal heart and pericardium. Normal mediastinum. Normal hilar regions. Normal visualized trachea and bronchi. Segment atelectases in the lung bases. Normal pulmonary parenchyma. Normal pleura. Normal chest wall structures. Normal osseous structures. Normal visualized upper abdomen. CT/CTA Chest W/WO Contrast IMPRESSION: No demonstrated pulmonary embolism or arterial dissection. Electronically Signed: Nereyda Medina MD at 2:58 EST ,
[2022-08-15 02:28] VITALS: BP 151/95; PULSE 96; RESP 18; O2SAT 95
[2022-08-15 02:38] LABS: Reflex Troponin-HS? (from REC) Y
[2022-08-15 02:54] LABS: Troponin-I HS 7 pg/mL (3.0-78.0)
== END 2022-08-15 03:34 | disposition home or self-care (01) ==
PROVIDERS: Emergency Provider Emergency Medicine; PCP Family Medicine; Visit Provider Emergency Medicine
DX: R07.9 Chest pain, unspecified (principal); I10 Essential (primary) hypertension; I25.10 Atherosclerotic heart disease of native coronary artery without angina pectoris; E66.9 Obesity, unspecified; Z87.891 Personal history of nicotine dependence; Z79.899 Other long term (current) drug therapy
CPT/HCPCS: 71045; 71275; 80048; 84484; 85025; 85379; 93005; 99284; Q9967; A4216

== ENCOUNTER 2024-07-22 06:16 | Day surgery (SDC) | payer OTHER, SELFPAY ==
--- NOTE | 2024-07-03 15:53 | PAT.ANESEVAL ---
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 When Was Last Pacemaker Check QUESTION #4 FULL TEXT: You/Your Family Experience fever (hyperthermia) with Anesthesia Last Oral Intake Last Oral intake: Last Oral Intake NPO since Meds taken in AM with sips of water? Meds patient instructed to take am of surgery PONV PONV - small products i assembler: PONV - small products i assembler Female No 07/03/24 14:46 HX of Motion Sickness No 07/03/24 14:46 HX of N/V After Surgery No 07/03/24 14:46 Non-Smoker Yes 07/03/24 14:46 Duration of Surgery greater Yes 07/03/24 14:46 than 60 minutes Number of Risk Factors 2 07/03/24 14:46 PONV Score Moderate Risk 07/03/24 14:46 Height & Weight Height & Weight: Anesthesia: Height & Weight Height 5 ft 9 in 08/15/22 00:12 Respiratory Assessment Respiratory Assessment - small products i assembler: Respiratory Tract Infection Hx - small products i assembler Hx Respiratory Tract Infection No 07/03/24 14:46 STOP Sleep Apnea STOP Sleep Apnea - small products i assembler: STOP Sleep Apnea - small products i assembler Hx Hypertension Yes: CONTROLLED WITH MEDS 07/03/24 14:46 Hx Sleep Apnea No 07/03/24 14:46 CPAP BIPAP Do you snore loudly (louder Yes 07/03/24 14:46 than talking or can be heard Do you often feel tired/ No 07/03/24 14:46 fatigued/ sleepy during daytime? Has anyone observed you stop No 07/03/24 14:46 breathing during sleep? STOP Results Positive 07/03/24 14:46 QUESTION #5 FULL TEXT : Do you snore loudly (louder than talking or can be heard through closed doors)? 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 Specify any problems Hx of Preganancy in last 3 N/A 07/03/24 14:46 Months Nurse Filling Out Transfusion DSCHRIBER 07/03/24 14:46 & Questions: Date: 07/03/24 07/03/24 14:46 Time: 14:48 07/03/24 14:46 Patient unable to answer at this time (ie. confused, unrespo /Reproduction History /Reproductive History - small products i assembler: /Reproductive Hx- small products i assembler Hx Now No 07/03/24 14:46 Gestational Age (in weeks): EDC: Hx Hx Para Hx Section SAB No 07/03/24 14:46 PFSH Medical History (Updated 07/03/24 @ 14:53 by Rubina Motta) Loss of hearing Wears glasses Alcohol use Arthritis Back pain Heartburn Former smoker Leg cramps History of pain when walking History of echocardiogram History of stress test Cardiology follow-up encounter Atherosclerotic heart disease of [place] coronary artery without angina pectoris Hyperlipidemia Hypertension Home Medications ?Medication ?Instructions ?Recorded ?Last Taken ?Type lisinopril 40 mg tablet 40 mg PO DAILY blood pressure 06/18/20 Unknown History amlodipine 10 mg tablet 10 mg PO DAILY #1 TAB 07/06/20 Unknown Rx Allergy/AdvReac Type Severity Reaction Status Date / Time No Known Allergies Allergy Verified 07/03/24 14:45 Surgical History (Updated 07/03/24 @ 14:53 by Rubina Motta) Hx of colonoscopy History of tympanoplasty of left ear History of left heart catheterization (LHC) (~06/20/20) Social History Smoking Status: Former smoker Audit: Pertinent Findings Pertinent Findings EKG Perinent findings: August 15, 2022. Normal sinus rhythm. Left axis deviation. Stress test pertinent findings: July 22, 2020 ejection fraction 55%. No ischemia or infarct seen. Echo (EF%) pertinent findings: June 20, 2020. Ejection fraction of 55%. Right ventricular systolic pressure is 24 mmHg. No aortic stenosis noted. Heart catheterization pertinent findings: June 20, 2020. Ejection fraction 55%. Normal left ventricular wall motion. Mild multivessel coronary artery disease. Nothing more than 25% stenosis. Consult pertinent findings: December 05, 2020. Jerry. #1 coronary artery disease. Patient has no angina. They are stable from a cardiac standpoint. #2 hypertension. Blood pressure is well-controlled. Recommendation Anesthesia Recommendation Anesthesia recommendation: OPTIMIZED for anesthesia
--- NOTE | 2024-07-03 16:03 | PRE.ANES_ITS ---
Assessment & Plan Anesthesia* Anesthesia Assessment Anesthesia Assessment: Discussed sedation and/or anesthesia options, risks, benefits, and alternatives with patient/parents/legal guardian/POA. Questions invited. The patient/parents/legal guardian/POA seems to understand and agrees to proceed with anesthesia plan. Reviewed the physical assessment, medical history, allergy history and patient home medications list prior to surgery/procedure/anesthetic and documented any changes. Performed airway and anesthesia risk assessments. Focused Labs Anesthesia Preop lab: CBC WBC 12.0 K/mm3 (4.4-11.0) H 08/15/22 00:17 3 RBC 4.92 M/mm3 (4.6-6.2) 08/15/22 00:17 08/15/22 Hgb 15.2 g/dL (13.0-16.5) 08/15/22 00:17 08/15/22 Hct 45.0 % (40-54) 08/15/22 00:17 08/15/22 Plt Count 197 K/mm3 (150-450) 08/15/22 00:17 08/15/22 CHEMISTRY Potassium 3.7 mmol/L (3.5-5.1) 08/15/22 00:17 08/15/22 Sodium 136 mmol/L (136-145) 08/15/22 00:17 08/15/22 BUN 11 mg/dL (7-18) 08/15/22 00:17 08/15/22 Creatinine 1.08 mg/dL (0.70-1.30) 08/15/22 00:17 08/15/22 Glucose 242 mg/dL (74-106) H 08/15/22 00:17 08/15/22 COAG PT 12.7 SECONDS (11.7-14.9) 10/25/20 11:15 Pre-Assessment Diagnosis/Proposed Procedure Planned Operative Procedure(s): RIGHT LONG FINGER MUCOUS CYST REMOVAL WITH POSS LOCAL SOFT TISSUE REARRANGEMENT Anesthesia History Anesthesia History - marklogic developer: Anesthesia History - marklogic developer Hx Hospitalization No 07/03/24 14:46 Any Problems With Anesthesia No 07/03/24 14:46 Cholinesterase deficiency No 07/03/24 14:46 You/Your Family Experience No 07/03/24 14:46 fever (hyperthermia) with Relationship Recent Exposure to Contagious Disease Does patient have nerve No 07/03/24 14:46 stimulator Patient instructed to have device shut off --Does patient have Pacemaker or ICD? When Was Last Pacemaker Check QUESTION #4 FULL TEXT: You/Your Family Experience fever (hyperthermia) with Anesthesia Last Oral Intake Last Oral intake: Last Oral Intake NPO since Meds taken in AM with sips of water? Meds patient instructed to take am of surgery PONV PONV - marklogic developer: PONV - marklogic developer Female No 07/03/24 14:46 HX of Motion Sickness No 07/03/24 14:46 HX of N/V After Surgery No 07/03/24 14:46 Non-Smoker Yes 07/03/24 14:46 Duration of Surgery greater Yes 07/03/24 14:46 than 60 minutes Number of Risk Factors 2 07/03/24 14:46 PONV Score Moderate Risk 07/03/24 14:46 Height & Weight Height & Weight: Anesthesia: Height & Weight Height 5 ft 9 in 08/15/22 00:12 Respiratory Assessment Respiratory Assessment - marklogic developer: Respiratory Tract Infection Hx - marklogic developer Hx Respiratory Tract Infection No 07/03/24 14:46 STOP Sleep Apnea STOP Sleep Apnea - marklogic developer: STOP Sleep Apnea - marklogic developer Hx Hypertension Yes: CONTROLLED WITH MEDS 07/03/24 14:46 Hx Sleep Apnea No 07/03/24 14:46 CPAP BIPAP Do you snore loudly (louder Yes 07/03/24 14:46 than talking or can be heard Do you often feel tired/ No 07/03/24 14:46 fatigued/ sleepy during daytime? Has anyone observed you stop No 07/03/24 14:46 breathing during sleep? STOP Results Positive 07/03/24 14:46 QUESTION #5 FULL TEXT : Do you snore loudly (louder than talking or can be heard through closed doors)? Tobacco Use History Tobacco Use History - marklogic developer: Tobacco Use History - marklogic developer Tobacco Use Smoking Status Former smoker 07/03/24 14:46 Hx Tobacco Use No 07/03/24 14:46 Years Smoking Packs Smoked per Day Smoking Cessation Date was No - quit smoking greater 07/03/24 14:46 within the last 15 years than 15 years ago Hx Smoking Cessation Date 07/15/16 07/03/24 14:46 Hx Smoking Cessation No 07/03/24 14:46 Counseling Hematologic Medial History Hematologic Hx - marklogic developer: Hematologic Medical Hx - program trainer Hx of Blood Transfusion No 07/03/24 14:46 Hx of Transfusion in last 3 No 07/03/24 14:46 Months Date of Last Transfusion (if within last 3 months) Ever experience any problems No 07/03/24 14:46 with transfusion(s)? Specify any problems Hx of Preganancy in last 3 N/A 07/03/24 14:46 Months Nurse Filling Out Transfusion DSCHRIBER 07/03/24 14:46 & Questions: Date: 07/03/24 07/03/24 14:46 Time: 14:48 07/03/24 14:46 Patient unable to answer at this time (ie. confused, unrespo /Reproduction History /Reproductive History - marklogic developer: /Reproductive Hx- marklogic developer Hx Now No 07/03/24 14:46 Gestational Age (in weeks): EDC: Hx Hx Para Hx Section SAB No 07/03/24 14:46 PFSH Medical History Loss of hearing Wears glasses Alcohol use Arthritis Back pain Heartburn Former smoker Leg cramps History of pain when walking History of echocardiogram History of stress test Cardiology follow-up encounter Atherosclerotic heart disease of [place] coronary artery without angina pectoris Hyperlipidemia Hypertension Home Medications ?Medication ?Instructions ?Recorded ?Last Taken ?Type lisinopril 40 mg tablet 40 mg PO DAILY blood pressur e 06/18/20 07/21/24 History amlodipine 10 mg tablet 10 mg PO DAILY #1 TAB 07/21/24 Rx doxycycline monohydrate 50 mg 50 mg PO BID 7 days #14 caps 07/22/24 Unknown Rx capsule oxycodone 5 mg tablet 5 mg PO Q8H PRN pain 5 days #10 07/22/24 Unknown Rx tabs Allergy/AdvReac Type Severity Reaction Status Date / Time No Known Allergies Allergy Verified 08/07/24 09:16 Surgical History Hx of colonoscopy History of tympanoplasty of left ear History of left heart catheterization (LHC) (~06/20/20) Social History Smoking Status: Former smoker Review of Systems (Anesthesia) ROS Narrative System reviewed and no additional complaints, except as documented.
[2024-07-22] VITALS (7 sets, daily range): BP systolic 109–136; BP diastolic 75–97; PULSE 64–72; RESP 14–18; TEMP 36.3–36.8; O2SAT 92–96; BMI 33.5
--- NOTE | 2024-07-22 07:21 | PRE.ANES_ITS ---
ASA Classification* ASA Classification ASA Classification: 2 Assessment & Plan Anesthesia* Anesthesia Assessment Anesthesia Assessment: Discussed sedation and/or anesthesia options, risks, benefits, and alternatives with patient/parents/legal guardian/POA. Questions invited. The patient/parents/legal guardian/POA seems to understand and agrees to proceed with anesthesia plan. Reviewed the physical assessment, medical history, allergy history and patient home medications list prior to surgery/procedure/anesthetic and documented any changes. Performed airway and anesthesia risk assessments. Anesthesia Type Anesthesia Type: MAC Anesthesia Focused Assessment* Temperature: 98.2 F Pulse Rate: 65 Blood Pressure: 136/97 Respiratory Rate: 17 Pulse Ox: 95 Airway Assessment Mouth opens: >3 cm Mallampati Score: II Focused Labs Anesthesia Preop lab: CBC WBC 12.0 K/mm3 (4.4-11.0) H 08/15/22 00:17 RBC 4.92 M/mm3 (4.6-6.2) 08/15/22 00:17 Hgb 15.2 g/dL (13.0-16.5) 08/15/22 00:17 Hct 45.0 % (40-54) 08/15/22 00:17 Plt Count 197 K/mm3 (150-450) 08/15/22 00:17 CHEMISTRY Potassium 3.7 mmol/L (3.5-5.1) 08/15/22 00:17 Sodium 136 mmol/L (136-145) 08/15/22 00:17 BUN 11 mg/dL (7-18) 08/15/22 00:17 Creatinine 1.08 mg/dL (0.70-1.30) 08/15/22 00:17 Glucose 242 mg/dL (74-106) H 08/15/22 00:17 COAG PT 12.7 SECONDS (11.7-14.9) 10/25/20 11:15 Pre-Assessment Diagnosis/Proposed Procedure Planned Operative Procedure(s): RIGHT LONG FINGER MUCOUS CYST REMOVAL WITH POSS LOCAL SOFT TISSUE REARRANGEMENT Anesthesia History Anesthesia History - finance insurance manager: Anesthesia History - finance insurance manager Hx Hospitalization No 07/03/24 14:46 Any Problems With Anesthesia No 07/03/24 14:46 Cholinesterase deficiency No 07/03/24 14:46 You/Your Family Experience No 07/03/24 14:46 fever (hyperthermia) with Relationship Recent Exposure to Contagious No 07/22/24 06:55 Disease Does patient have nerve No 07/03/24 14:46 stimulator Patient instructed to have device shut off --Does patient have Pacemaker No 07/22/24 06:55 or ICD? When Was Last Pacemaker Check QUESTION #4 FULL TEXT: You/Your Family Experience fever (hyperthermia) with Anesthesia Last Oral Intake Last Oral intake: Last Oral Intake NPO since 00:00 07/22/24 06:55 Meds taken in AM with sips of No 07/22/24 06:55 water? Meds patient instructed to take am of surgery PONV PONV - finance insurance manager: PONV - finance insurance manager Female No 07/03/24 14:46 HX of Motion Sickness No 07/03/24 14:46 HX of N/V After Surgery No 07/03/24 14:46 Non-Smoker Yes 07/03/24 14:46 Duration of Surgery greater Yes 07/03/24 14:46 than 60 minutes Number of Risk Factors 2 07/03/24 14:46 PONV Score Moderate Risk 07/03/24 14:46 Height & Weight Height & Weight: Anesthesia: Height & Weight Height 5 ft 8 in 07/22/24 06:55 Weight: 100 kg 07/22/24 06:55 Body Mass Index (BMI) 33.5 07/22/24 06:55 Respiratory Assessment Respiratory Assessment - finance insurance manager: Respiratory Tract Infection Hx - finance insurance manager Hx Respiratory Tract Infection No 07/03/24 14:46 STOP Sleep Apnea STOP Sleep Apnea - finance insurance manager: STOP Sleep Apnea - finance insurance manager Hx Hypertension Yes: CONTROLLED WITH MEDS 07/03/24 14:46 Hx Sleep Apnea No 07/03/24 14:46 CPAP BIPAP Do you snore loudly (louder Yes 07/03/24 14:46 than talking or can be heard Do you often feel tired/ No 07/03/24 14:46 fatigued/ sleepy during daytime? Has anyone observed you stop No 07/03/24 14:46 breathing during sleep? STOP Results Positive 07/03/24 14:46 QUESTION #5 FULL TEXT : Do you snore loudly (louder than talking or can be heard through closed doors)? Tobacco Use History Tobacco Use History - finance insurance manager: Tobacco Use History - finance insurance manager Tobacco Use Smoking Status Former smoker 07/03/24 14:46 Hx Tobacco Use No 07/03/24 14:46 Years Smoking Packs Smoked per Day Smoking Cessation Date was No - quit smoking greater 07/03/24 14:46 within the last 15 years than 15 years ago Hx Smoking Cessation Date 07/15/16 07/03/24 14:46 Hx Smoking Cessation No 07/03/24 14:46 Counseling Hematologic Medial History Hematologic Hx - finance insurance manager: Hematologic Medical Hx - business change manager Hx of Blood Transfusion No 07/03/24 14:46 Hx of Transfusion in last 3 No 07/03/24 14:46 Months Date of Last Transfusion (if within last 3 months) Ever experience any problems No 07/03/24 14:46 with transfusion(s)? Specify any problems Hx of Preganancy in last 3 N/A 07/03/24 14:46 Months Nurse Filling Out Transfusion DSCHRIBER 07/03/24 14:46 & Questions: Date: 07/03/24 07/03/24 14:46 Time: 14:48 07/03/24 14:46 Patient unable to answer at this time (ie. confused, unrespo /Reproduction History /Reproductive History - finance insurance manager: /Reproductive Hx- finance insurance manager Hx Now No 07/03/24 14:46 Gestational Age (in weeks): EDC: Hx Hx Para Hx Section SAB No 07/03/24 14:46 Active Medications Active Medications: Current Medications Generic Name Dose Route Start Last Admin Trade Name Freq PRN Reason Stop Dose Admin Cefazolin Sodium 2 gm/ N/A 20 mls @ 400 mls/hr 07/22/24 08:00 IV 07/22/24 08:02 PREOP [facility] Medical History Loss of hearing Wears glasses Alcohol use Arthritis Back pain Heartburn Former smoker Leg cramps History of pain when walking History of echocardiogram History of stress test Cardiology follow-up encounter Atherosclerotic heart disease of [place] coronary artery without angina pectoris Hyperlipidemia Hypertension Home Medications ?Medication ?Instructions ?Recorded ?Last Taken ?Type lisinopril 40 mg tablet 40 mg PO DAILY blood pressure 06/18/20 07/21/24 History amlodipine 10 mg tablet 10 mg PO DAILY #1 TAB 07/06/20 07/21/24 Rx doxycycline monohydrate 50 mg 50 mg PO BID 7 days #14 caps 07/22/24 Unknown Rx capsule oxycodone 5 mg tablet 5 mg PO Q8H PRN pain 5 days #10 07/22/24 Unknown Rx tabs Allergy/AdvReac Type Severity Reaction Status Date / Time No Known Allergies Allergy Verified 07/22/24 06:55 Surgical History Hx of colonoscopy History of tympanoplasty of left ear History of left heart catheterization (LHC) (~06/20/20) Social History Smoking Status: Former smoker Review of Systems (Anesthesia) ROS Narrative System reviewed and no additional complaints, except as documented.
--- NOTE | 2024-07-22 07:48 | HP.PCM.SX_ITS ---
HPI - General HPI Narrative JAKE RAMOS, is a 63 M who presents with right long finger mucous cyst. Current Encounter (DATE OF SURGERY H&P UPDATE): I saw and examined the patient this morning in pre-operative holding. We discussed risks and benefits of today's surgery and they would like to proceed. NO CHANGE in health history since last seen and evaluated. Ready to proceed with [facility] Medical History Loss of hearing Wears glasses Alcohol use Arthritis Back pain Heartburn Former smoker Leg cramps History of pain when walking History of echocardiogram History of stress test Cardiology follow-up encounter Atherosclerotic heart disease of [place] coronary artery without angina pectoris Hyperlipidemia Hypertension Home Medications ?Medication ?Instructions ?Recorded ?Last Taken ?Type lisinopril 40 mg tablet 40 mg PO DAILY blood pressure 06/18/20 07/21/24 History amlodipine 10 mg tablet 10 mg PO DAILY #1 TAB 07/06/20 07/21/24 Rx doxycycline monohydrate 50 mg 50 mg PO BID 7 days #14 caps 07/22/24 Unknown Rx capsule oxycodone 5 mg tablet 5 mg PO Q8H PRN pain 5 days #10 07/22/24 Unknown Rx tabs Allergy/AdvReac Type Severity Reaction Status Date / Time No Known Allergies Allergy Verified 07/22/24 06:55 Surgical History Hx of colonoscopy History of tympanoplasty of left ear History of left heart catheterization (LHC) (~06/20/20) Social History Smoking Status: Former smoker Vital Signs Vital Signs Vital Signs: 07/22/24 06:55 07/22/24 06:55 07/22/24 07:21 Temperature 98.2 F 98.2 F Temperature Source Temporal Pulse Rate 65 65 Respiratory Rate 17 17 Respiratory Pattern Normal Blood Pressure 136/97 H 136/97 H Blood Pressure Mean 110 Blood Pressure Source Monitor Blood Pressure Position Semi-Fowlers Blood Pressure Location Right Arm Pulse Ox 95 95 Oxygen Delivery Method Room Air Weight Weight: 220 lb 7.396 oz Body Mass Index (BMI) 33.5 Physical Exam Narrative Right long finger mucous cyst. Marked in preop Assessment & Plan Assessment/Plan (1) Mucous cyst of digit of hand: PLAN: Plan I talked the patient extensively about the risks of surgery, including bleeding, infection, damage to surrounding structures, surgical site dehiscence and wound formation, need for wound care, need for repeat operations, failure to obtain the desired result, DVT/PE, and the risks of anesthesia including . The benefits and alternatives of this surgery were also discussed. All of their questions were answered, and they agreed to proceed with surgery. Plan for IVETT block INTERVAL H&P PLAN, DATE OF SURGERY: We will proceed with surgery today.
--- NOTE | 2024-07-22 08:00 | CYST_PTH ---
PATIENT: JAKE RAMOS LOC: [facility] U#:[id number] AGE/SX: 63/M ROOM: RE07/22/[address]: Dr. Alphonse Henao MD : 1960 BED: DIS: 07/22/2024 SPEC #: [id number] RECD: 07/22/24 11:20 STATUS: GORDON TATIANA #: [id number] PRISCILLA: 07/22/24 08:[address]: Alphonse Henao DEPT: SURGICAL PATHOLOGY RECD BY: Lele Queen ENTERED: 07/22/24 12:12 SP TYPE: Cyst OTHR DR: Dr. Jeffrey Simmons MD Tissues: CYST Procedures: Surgery Specimen Level III HEADER OPERATION: Right long finger mucous cyst excision PRE-OP DIAGNOSIS: Mucous cyst of digit of hand TISSUE SUBMITTED: Right long finger mucous cyst MICROSCOPIC DIAGNOSIS Right long finger mucous cyst, excision: Fragments of fibroconnective tissue with changes consistent with mucous cyst and reactive changes. SJ.mr 07/23/2024 MICROSCOPIC DESCRIPTION Slides are reviewed. GROSS DESCRIPTION Received in fixative is one container labeled with the patient's name and designated Right long finger mucous cyst. The specimen consists of two pieces of garrido-white tissue measuring in aggregate 0.5 x 0.1 x 0.1cm. The entire specimen is submitted in one cassette. . 07/22/2024 TC:5 CPT:[id number]
[2024-07-22] MEDS: Cefazolin 2 GM in Syringe IV (08:14)
[2024-07-22] MEDS: Bupivacaine 0.25% 30 ML Vial (08:30)
[2024-07-22] MEDS: Lidocaine 0.5% (50 ml) 50 ML Vial (08:30)
--- NOTE | 2024-07-22 08:44 | PCM.POST.ANE ---
Anesthesia: Postop Eval I Current Vital Signs Temperature: 97.4 F Pulse Rate: 72 Blood Pressure: 109/75 Respiratory Rate: 16 Pulse Ox: 93 Oxygen Delivery Method: Room Air Assessment Airway patent: Yes Spontaneous unlabored respirations: Yes Mental status: Awake and Calm nausea: No Vomiting: No Anesthesia Complication: No Fluid Hydration Crystalloid volume administer (ml): 20 Total IV fluid infused: 20 Progress Note Anesthesia document: Postop Eval 1 completed: Yes
--- NOTE | 2024-07-22 12:50 | POSTOPAN2_ITS ---
Anesthesia Postop Eval I Sum Postop Eval Completion status Anesthesia document: Postop Eval 1 completed: Yes Anesthesia Postop Eval I Summary Anesthesia Postop Eval I Summary: Anesthesia Postop Eval I: Assessment Summary Airway patent Yes 07/22/24 08:45 PRODUCT SAFETY SPECIALIST.GDOTT Spontaneous unlabored Yes 07/22/24 08:45 PRODUCT SAFETY SPECIALIST.GDOTT respirations Mental status Awake,Calm 07/22/24 08:45 PRODUCT SAFETY SPECIALIST.GDOTT nausea No 07/22/24 08:45 PRODUCT SAFETY SPECIALIST.GDOTT Vomiting No 07/22/24 08:45 PRODUCT SAFETY SPECIALIST.GDOTT Anesthesia Postop Eval I: Fluid Summary Crystalloid volume administer 20 07/22/24 08:45 PRODUCT SAFETY SPECIALIST.GDOTT (ml) Colloids volume administered ( ml) Blood Product volume administered (ml) Total IV fluid infused 20 07/22/24 08:45 PRODUCT SAFETY SPECIALIST.GDOTT Anesthesia Postop Eval I: Summary Notes Anesthesia Complication No 07/22/24 08:45 PRODUCT SAFETY SPECIALIST.GDOTT Anesthesia Complication Comment: Post-operative progress note Anesthesia: Postop Eval II Evaluation Mental status: Awake Pain Level: 0 nausea: No Vomiting: No
--- NOTE | 2024-07-22 12:50 | PCM.POSTANE2 ---
Anesthesia Postop Eval I Sum Postop Eval Completion status Anesthesia document: Postop Eval 1 completed: Yes Anesthesia Postop Eval I Summary Anesthesia Postop Eval I Summary: Anesthesia Postop Eval I: Assessment Summary Airway patent Yes 07/22/24 08:45 BIOLOGICAL SCIENCE TECHNICIAN FISH.GDOTT Spontaneous unlabored Yes 07/22/24 08:45 BIOLOGICAL SCIENCE TECHNICIAN FISH.GDOTT respirations Mental status Awake,Calm 07/22/24 08:45 BIOLOGICAL SCIENCE TECHNICIAN FISH.GDOTT nausea No 07/22/24 08:45 BIOLOGICAL SCIENCE TECHNICIAN FISH.GDOTT Vomiting No 07/22/24 08:45 BIOLOGICAL SCIENCE TECHNICIAN FISH.GDOTT Anesthesia Postop Eval I: Fluid Summary Crystalloid volume administer 20 07/22/24 08:45 BIOLOGICAL SCIENCE TECHNICIAN FISH.GDOTT (ml) Colloids volume administered ( ml) Blood Product volume administered (ml) Total IV fluid infused 20 07/22/24 08:45 BIOLOGICAL SCIENCE TECHNICIAN FISH.GDOTT Anesthesia Postop Eval I: Summary Notes Anesthesia Complication No 07/22/24 08:45 BIOLOGICAL SCIENCE TECHNICIAN FISH.GDOTT Anesthesia Complication Comment: Post-operative progress note Anesthesia: Postop Eval II Evaluation Mental status: Awake Pain Level: 0 nausea: No Vomiting: No
--- NOTE | 2024-07-22 17:50 | OP.PCM_ITS ---
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 Type of Anesthesia: Block,Abbey RN Documented Start/Stop Times: Operation Date: 07/22/24 08:00 Case Time Into Pre-Op 07/22/24 06:20 Out of Pre-Op 07/22/24 07:57 Anesthesia Start 07/22/24 07:59 Into Room 07/22/24 07:59 Procedure Start 07/22/24 08:20 Procedure End 07/22/24 08:33 Anesthesia End 07/22/24 08:41 Out of Room 07/22/24 08:41 Into Recovery 07/22/24 08:46 Into Phase II Recovery 07/22/24 09:13 Out of Recovery 07/22/24 09:13 Out of Phase II 07/22/24 09:47 Procedure Start Time: 08:20 Procedure Stop Time: 08:33 Select all DRAINS/GRAFTS/IMPLANTS that apply: None Estimated Blood Loss: Minimal Specimen collected: Yes Description of specimen(s) removed: Mucous cyst stalk Description of surgery: Indication: Patient presents with right long finger mucous cyst. Understands risk benefits and alternatives of removal and wanted to proceed. Procedure details: OPERATIVE DETAILS: Patient was correctly identified in preoperative holding and the correct mucous cyst and digit were marked with the patient in agreement. They were taken back to the operating room where they are administered [place] block for anesthesia, as well as 4 cc of 0.25% Marcaine for a local block. They were prepped and draped in sterile fashion. All proper timeouts were performed. We began the procedure by making a transverse incision on the radial side of the DIP joint (cyst was on the radial side, but the incision was made proximal to the cyst) so as to give more exposure to the potential underlying osteophyte and the cyst stalk. The cyst was excised from beneath the skin extension excising the stalk with a curette and leaving the skin over the cyst intact. The joint and the osteophytes were debrided between the terminal slip and the collateral ligaments with the curette. The wound was then washed out with copious amounts of normal saline and the specimen sent to pathology. The incision was then closed with interrupted 3-0 nylon horizontal mattress sutures without any tension for a 2 cm simple closure. A Xeroform, Kerlix, and AlumaFoam splint with Coban (DIP joint immobilized in extension, PIP joint free) were then placed for dressing. He tolerated the procedure well. The patient was awakened and taken to the PACU in stable condition. Surgical Findings: Consistent with mucous cyst at the DIP joint on the right long finger Complications Complications: No Admit VTE Documentation VTE Mechan Device Prophylaxis: SCD's
== END 2024-07-22 09:46 | disposition home or self-care (01) ==
LOC: SDC 06:17 → AC 06:18
PROVIDERS: PCP Family Medicine; Referring Provider Surgery Plastic and Reconstructive Surgery; Visit Provider Surgery Plastic and Reconstructive Surgery
PROC: (CPT 26055; principal; 2024-07-22 07:50)
DX: M71.341 Other bursal cyst, right hand (principal); I25.10 Atherosclerotic heart disease of native coronary artery without angina pectoris; I10 Essential (primary) hypertension; Z87.891 Personal history of nicotine dependence; Z79.899 Other long term (current) drug therapy
CPT/HCPCS: 26160; 11102; 01810; 88304; A4216; J2405